=== PATIENT | female | born 1985 | race Caucasian/White ===

== ENCOUNTER 2016-11-30 21:58 | Emergency (ER) | payer OTHER ==
[~2016-11-30] VITALS: Ht 162.6 cm; Wt 57.8 kg
[2016-11-30 22:12] VITALS: TEMP 36.8; Ht 162.6 cm; Wt 57.8 kg
[2016-11-30 23:10] LABS: URINE APPEARANCE CLEAR (CLEAR); URINE BILIRUBIN NEG (NEG); URINE COLOR DK YELLOW; URINE NITRITE NEG (NEG); URINE SPECIFIC GRAVITY 1.024 (1.000-1.030); UROBILINOGEN POS (NEG); ZZUR CULT IF INDIC CLEAN CATCH NO
[2016-11-30 23:11] LABS: MANUAL MICROSCOPIC REQUIRED? NO; REVIEW REQ? NO
[2016-11-30 23:27] LABS: HEMATOCRIT 40.8 % (37-47); MEAN CELL VOLUME 87.4 fL (80-100); MEAN CORPUSCULAR HEMOGLOBIN 30.4 pg (25-34); MEAN CORPUSCULAR HGB CONC 34.8 g/dl (32-36); MEAN PLATELET VOLUME 9.7 fL (7.4-10.4); PLATELET COUNT 253 K/uL (130-400); RED BLOOD COUNT 4.67 M/uL (4.2-5.4)
[2016-11-30 23:51] LABS: BUN/CREATININE RATIO 15.4 (10-20); CALCIUM 9.4 mg/dl (8.5-10.1); CREATININE 0.71 mg/dl (0.60-1.20); POTASSIUM 3.3 mmol/L (3.5-5.1)
[2016-11-30 23:53] LABS: ALB/GLOB RATIO 1.3 (0.9-2)
--- NOTE | 2016-11-30 23:55 | EMERGENCY ROOM VISIT NOTE ---
History Report prepared by Rajendra: Kelle Perez Under the Supervision of: Dr. Viky Aguilera D.O. First contact with patient: 23:07 Chief Complaint: ABDOMINAL PAIN Stated Complaint: STOMACH PAIN, THROWING UP GREEN, CANT EAT Nursing Triage Summary: Has been having abdominal pains and nausea intermittently on 11/14/16. Has been seen at [facility] over the weekend and was told it was gallbladder related and would need a surgical consult. Pain is left abdomen with radiation to mid-back. States emesis is green colored. History of Present Illness The patient is a 31 year old female who presents to the Emergency Room with complaints of intermittent abdominal pain that began two weeks ago. She currently rates her discomfort as a 5/10 in severity. The patient states that for the past two weeks she has had difficulty eating. She states that each time she eats, she becomes nauseous, develops abdominal pain, and then vomits. The patient denies any diarrhea or constipation. She denies any history of GI problems. The patient states that she was evaluated at [facility]'s Emergency Department and had a CT scan that revealed her symptoms were from her gallbladder. She states that she was instructed to see her primary care physician to set up a surgery consult. The patient states that she saw her PCP today and had additional blood work. She states that she was set up with a surgery consult for December 04, but states that her PCP cancelled the appointment. The patient states that she was instructed to come to [facility]'s Emergency department if she developed more nausea, vomiting, and abdominal pain. She reports a family history of gallbladder disease. The patient reports a surgical history of a hysterectomy. She denies any other active medical problems. Source of History: patient Onset: two weeks ago Position: abdomen Symptom Intensity: 5/10 Timing: intermittent Modifying Factors (Worsening): eating Associated Symptoms: + nausea, + vomiting, No diarrhea Review of Systems See HPI for pertinent positives & negatives. A total of 10 systems reviewed and were otherwise negative. Past Medical & Surgical Surgical Problems: (1) H/O: hysterectomy Family History Gallbladder disease Social History Smoking Status: Current Every Day Smoker Alcohol Use: none Occupation Status: employed Current/Historical Medications No Active Prescriptions or Reported Meds Allergies Coded Allergies: No Known Allergies (Unverified , 11/30/16) Physical Exam Vital Signs Date Time Temp Pulse Resp B/P (MAP) Pulse Ox O2 Delivery O2 Flow Rate FiO2 12/01/16 04:35 76 100 12/01/16 04:31 110/84 12/01/16 04:20 78 100 12/01/16 04:05 91 100 12/01/16 04:00 133/83 12/01/16 03:50 84 99 12/01/16 03:35 72 100 12/01/16 03:30 122/83 12/01/16 03:29 81 100 12/01/16 03:14 74 100 12/01/16 03:01 114/86 12/01/16 02:59 65 99 12/01/16 02:54 68 99 12/01/16 02:39 67 100 12/01/16 02:30 124/84 12/01/16 02:24 65 100 12/01/16 02:09 67 100 12/01/16 02:01 113/82 12/01/16 01:54 88 100 12/01/16 01:49 75 100 12/01/16 01:34 75 100 12/01/16 01:30 123/86 12/01/16 01:19 76 100 12/01/16 01:04 78 100 12/01/16 00:59 122/75 12/01/16 00:06 79 100 12/01/16 00:01 111/77 11/30/16 23:58 87 100 11/30/16 23:43 83 100 11/30/16 23:30 120/87 11/30/16 23:28 84 100 11/30/16 23:13 95 100 11/30/16 22:58 88 100 11/30/16 22:57 122/85 11/30/16 22:12 36.8 88 16 140/90 99 Room Air Physical Exam HEENT: Head - normocephalic and atraumatic Pupils are equal, round, and reactive to light. Extraocular eye muscles are intact, and sclera are anicteric. Nose - moist nasal mucosa without discharge. Mouth - moist buccal mucosa. Oropharynx is nonerythematous and there is no tonsillar exudate or edema noted. Neck: Supple; no JVD, nuchal rigidity, cervical lymphadenopathy. Heart: Regular rate and rhythm. There is a normal S1 and S2 with no murmurs, clicks, or gallops appreciated. Lungs: Clear to auscultation bilaterally with no wheezes, rales, or rhonchi. Abdomen: Exquisitely tender in the right upper quadrant. Soft, nondistended, with good bowel sounds. There are no palpable pulsatile masses or hepatosplenomegaly. There is no guarding, rigidity, or rebound noted. Extremities: No evidence of cyanosis, clubbing, or edema. There are easily palpable peripheral pulses. Skin: warm and dry with good turgor and no rashes. Medical Decision & Procedures ER Provider Diagnostic Interpretation: Radiology results as stated below per my review and the radiologist's interpretation: US RUQ: Visualized portions of the pancreas, aorta, and IVC are normal. The liver measures up to 16.3 cm. There is slightly hypoechoic lesion measuring 1.5 cm in the left lobe of the liver located more anteriorly. No definite vascularity is seen. The lesion can be better characterized on triple phase MRI or CT on nonemergent basis if clinically indicated. There is also a 2.7 cm oblong hyperechoic lesion in the left liver, likely focal fatty infiltration. This can also be confirmed on triple phase CT or MRI. The gallbladder is contracted with a 1.7 cm stone in the neck. There is also some sludge. Negative Barillas sign. No pericholecystic fluid. The gallbladder wall is within normal limits. The CBD measures 4.6 mm. The right kidney appears unremarkable. Radiologist: Gregory Martel MD Study ready at 0119 and initial results transmitted at 0143 Laboratory Results 11/30/16 23:10 Red Blood Count 4.67, Mean Corpuscular Volume 87.4, Mean Corpuscular Hemoglobin 30.4, Mean Corpuscular Hemoglobin Concent 34.8, Mean Platelet Volume 9.7, Neutrophils (%) (Auto) 35.9, Lymphocytes (%) (Auto) 56.0, Monocytes (%) (Auto) 5.8, Eosinophils (%) (Auto) 1.9, Basophils (%) (Auto) 0.3, Neutrophils # (Auto) 2.80, Lymphocytes # (Auto) 4.37, Monocytes # (Auto) 0.45, Eosinophils # (Auto) 0.15, Basophils # (Auto) 0.02 11/30/16 23:10 Test 11/30/16 23:00 11/30/16 23:10 Urine Color DK YELLOW Urine Appearance CLEAR (CLEAR) Urine pH 7.0 (4.5-7.5) Urine Specific [place] 1.024 (1.000-1.030) Urine Protein NEG (NEG) Urine Glucose (UA) NEG (NEG) Urine Ketones 1+ (NEG) Urine Occult Blood NEG (NEG) Urine Nitrite NEG (NEG) Urine Bilirubin NEG (NEG) Urine Urobilinogen POS (NEG) Urine Leukocyte Esterase NEG (NEG) White Blood Count 7.80 K/uL (4.8-10.8) Red Blood Count 4.67 M/uL (4.2-5.4) Hemoglobin 14.2 g/dL (12.0-16.0) Hematocrit 40.8 % (37-47) Mean Corpuscular Volume 87.4 fL (80-100) Mean Corpuscular Hemoglobin 30.4 pg (25-34) Mean Corpuscular Hemoglobin Concent 34.8 g/dl (32-36) Platelet Count 253 K/uL (130-400) Mean Platelet Volume 9.7 fL (7.4-10.4) Neutrophils (%) (Auto) 35.9 % Lymphocytes (%) (Auto) 56.0 % Monocytes (%) (Auto) 5.8 % Eosinophils (%) (Auto) 1.9 % Basophils (%) (Auto) 0.3 % Neutrophils # (Auto) 2.80 K/uL (1.4-6.5) Lymphocytes # (Auto) 4.37 K/uL (1.2-3.4) Monocytes # (Auto) 0.45 K/uL (0.11-0.59) Eosinophils # (Auto) 0.15 K/uL (0-0.5) Basophils # (Auto) 0.02 K/uL (0-0.2) RDW Standard Deviation 42.6 fL (36.4-46.3) RDW Coefficient of Variation 13.3 % (11.5-14.5) Immature Granulocyte % (Auto) 0.1 % Immature Granulocyte # (Auto) 0.01 K/uL (0.00-0.02) Anion Gap 9.0 mmol/L (3-11) Est Creatinine Clear Calc Drug Dose 98.3 ml/min Estimated GFR () 130.6 Estimated GFR (Non- 112.7 BUN/Creatinine Ratio 15.4 (10-20) Calcium Level 9.4 mg/dl (8.5-10.1) Total Bilirubin 1.1 mg/dl (0.2-1) Aspartate Amino Transf (AST/SGOT) 11 U/L (15-37) Alanine Aminotransferase (ALT/SGPT) 19 U/L (12-78) Alkaline Phosphatase 48 U/L (45-117) Total Protein 7.4 gm/dl (6.4-8.2) Albumin 4.2 gm/dl (3.4-5.0) Globulin 3.2 gm/dl (2.5-4.0) Albumin/Globulin Ratio 1.3 (0.9-2) Lipase 103 U/L (73-393) Laboratory results per my review. Medications Administered Medications (Trade) Dose Ordered Sig/Marcus Route Start Time Stop Time Status Last Admin Dose Admin Sodium Chloride 1,000 ml @ 250 mls/hr Q4H STAT IV 12/01/16 01:50 12/01/16 05:04 DC 12/01/16 01:57 250 MLS/HR Sodium Chloride 500 ml @ 999 mls/hr Q31M STAT IV 12/01/16 01:50 12/01/16 02:20 DC 12/01/16 01:57 999 MLS/HR Ondansetron HCl (Zofran Inj) 4 mg NOW STAT IV 12/01/16 02:02 12/01/16 02:03 DC 12/01/16 02:29 4 MG Procedure The patient was treated with Sodium Chloride 500 ml @ 999 mls/hr IV, Sodium Chloride 1000 ml @ 250 mls/hr IV, Zofran Inj 4 mg IV. ED Course 2343: Past medical records reviewed. The patient was evaluated in room B9. A complete history and physical exam was performed. 2355: I reviewed the patient's office visit notes today. I reviewed the patient's CBC and chemistry panel and everything was normal. 2358: I reevaluated the patient and discussed the treatment plan. 0005: I reviewed the patient's CT scan from [place] emergency department that showed choledocholithiasis with obstructing stone without evidence of gallbladder wall thickening etc. 0150: Ordered Sodium Chloride 500 ml @ 999 mls/hr IV, Sodium Chloride 1000 ml @ 250 mls/hr IV. 0150: I reevaluated the patient and she is still uncomfortable. I discussed the exam findings with her and I discussed the treatment plan. General Surgery will be consulted. 0158: I discussed the patients case with Dr. Pascal, General Surgery. She states that we should give the patient something to eat. She states that if the patient can eat, she will talk to the patient tomorrow about scheduling a cholecystectomy electively. 0202: Ordered Zofran Inj 4 mg IV. 0216: I reevaluated the patient and I updated her on the treatment plan. She is in agreement. 0354: I reevaluated the patient and she is experiencing moderate epigastric pain after eating a turkey sandwich. 0417: I reevaluated the patient and she is resting comfortably. I discussed the exam findings with her and I discussed the treatment plan. She verbalized complete understanding and agreement. She is ready to go home. Medical Decision The patient is a 31 year old female who presents to the ED with abdominal pain. Differential diagnosis includes gastritis, pancreatitis, cholecystitis, hepatitis. Lab interpretation: no leukocytosis, normal H&H, potassium 3.3, normal renal function and glucose, total bilirubin 1.1, Alk-phos was normal, lipase 103, urine 1 plus ketones, positive urobilinogen. The patient's bilirubin is up from earlier today as it was 0.9. I attest that I have personally reviewed the patient's current medication list. Patient was found to have normal blood pressure on screening and does not require follow-up. This is a 31-year-old female patient with right upper quadrant abdominal pain. On CT scan and ultrasound, there is evidence of choledocholithiasis. However, at this time, the patient is comfortable. She received IV fluids. She was able to drink and eat without vomiting. The patient has Zofran to use at home. She will be contacted later today by Dr. Pascal's office to arrange for outpatient elective surgery. Consults Time Called: 155 Consulting Physician: Dr. Pascal, General Surgery Returned Call: 015 I discussed the patients case with Dr. Pascal, General Surgery. She states that give the patient something to eat. She states that if the patient can eat she will talk to the patient tomorrow about scheduling a cholecystectomy electively. Impression Primary Impression: Choledocholithiasis Scribe Attestation The scribe's documentation has been prepared under my direction and personally reviewed by me in its entirety. I confirm that the note above accurately reflects all work, treatment, procedures, and medical decision making performed by me. Departure Information Dispostion Home / Self-Care Prescriptions No Active Prescriptions or Reported Meds Referrals No Doctor, Assigned (PCP) Forms Call Back Authorization, HOME CARE DOCUMENTATION FORM, IMPORTANT VISIT INFORMATION Patient Instructions Gallbladder Surg, Gallstones, My [facility] Additional Instructions Rest Take a very bland low fat diet Return to the ER if symptoms worsen.
[2016-12-01 00:40] LABS: BASO % 0.3 %; BASO ABS # 0.02 K/uL (0-0.2); COMPLETE YES; EOS % 1.9 %; IG% 0.1 %; LYMPH ABS # 4.37 K/uL (1.2-3.4); MONO % 5.8 %; NEUT % 35.9 %
[2016-12-01] MEDS ORDERED: SODIUM CHLORIDE 0.9% 500ML 500 ML IV STA (01:50)
[2016-12-01] MEDS ORDERED: SODIUM CHLORIDE 0.9% 1000ML 1,000 ML IV STA (01:50)
[2016-12-01] MEDS ORDERED: ONDANSETRON INJ 2 MG/ML 2 ML VIAL IV STA (02:02)
[2016-12-01 04:31] VITALS: BP 110/84
[2016-12-01 04:35] VITALS: PULSE 76; O2SAT 100
--- NOTE | 2016-12-01 06:52 | DIAGNOSTIC IMAGING REPORT ---
GALLBLADDER-ABD LIMITED CLINICAL HISTORY: eval for cho michele pain. Nausea. TECHNIQUE: Ultrasound COMPARISON STUDY: None FINDINGS: Moderately contracted gallbladder. 1.5 cm gallstone with a small amount of sludge. Common bile duct 5 mm. Liver demonstrates fatty infiltration. Several foci of increased echogenicity suggesting probable hemangiomas. Lobulation anterior margin of the liver versus 1.5 cm hypoechoic nodule. Poor visualization of the pancreatic tail. Pancreas body is unremarkable. IMPRESSION: 1. Fatty infiltration of liver. 2. Several benign hepatic hemangiomas. 3. Indeterminate 1.5 cm hypoechoic nodule versus lobulation of the anterior left hepatic lobe. Multiphase CT evaluation is recommended as initial evaluation. 4. Contracted gallbladder containing a 1.5 cm gallstone as well as a small amount of sludge. The above report was generated using voice recognition software. It may contain grammatical, syntax or spelling errors. Electronically signed by: Sriram Glaser M.D. 12/01/2016 6:51 AM Dictated Date/Time: 12/01/2016 6:47 AM
[2016-12-01] MEDS ORDERED: HYDR-5688 PO (20:46)
== END 2016-12-01 04:48 | disposition home or self-care (01) ==
LOC: C.EDB 22:01
DX: K80.50 Calculus of bile duct without cholangitis or cholecystitis without obstruction (principal); R11.2 Nausea with vomiting, unspecified; Z87.19 Personal history of other diseases of the digestive system; Z90.710 Acquired absence of both cervix and uterus; Z83.79 Family history of other diseases of the digestive system; F17.200 Nicotine dependence, unspecified, uncomplicated

== ENCOUNTER 2016-12-01 17:17 | Observation (INO) | payer OTHER ==
[~2016-12-01] VITALS: Ht 162.6 cm; Wt 57.2 kg
[2016-12-01] MEDS ORDERED: SODIUM CHLORIDE 0.9% 1000ML 1,000 ML IV STA (17:54)
[2016-12-01] MEDS ORDERED: ONDANSETRON 8 MG/54 ML D5W IV STA ×2 (17:54→19:31)
[2016-12-01] MEDS ORDERED: MoRPHine SULFATE 4 MG/ML 1 ML CARP\\VIAL IV STA ×2 (17:54→19:31)
--- NOTE | 2016-12-01 17:56 | EMERGENCY ROOM VISIT NOTE ---
History Report prepared by Rajendra: Kate Rubin Under the Supervision of: Dr. Luz Johnson D.O. First contact with patient: 17:39 Chief Complaint: GI ASSESSMENT Stated Complaint: GALLBLADDER STONES Nursing Triage Summary: pt dx with gallbladder disease last night in ER and spoke with surgeon pt returns to Er today for increased pain inability to eat n/v History of Present Illness The patient is a 31 year old female who presents to the Emergency Room with complaints of worsening intermittent abdominal pain and vomiting that started last night. The patient was evaluated in the ED last night where she was diagnosed with gallstones. She was discharged and told to come back if her symptoms got worse. The patient ate toast this morning and has vomited 3 times since then. She adds that she has experienced 2 episodes of diarrhea today as well. The patient has an extensive family history of gallbladder disease. She denies fevers, chest pain, shortness of breath, or any additional associated symptoms. Source of History: patient Onset: Last night Position: abdomen, other (GI system ) Timing: intermittent, worsening Modifying Factors (Relieving): other (None) Associated Symptoms: + vomiting, + diarrhea, No fevers, No chest pain, No SOB Review of Systems See HPI for pertinent positives & negatives. A total of 10 systems reviewed and were otherwise negative. Past Medical & Surgical Medical Problems: (1) Abdominal pain (2) Biliary colic (3) Cholelithiases (4) Vomiting Surgical Problems: (1) H/O: hysterectomy Family History Gallbladder disease Social History Smoking Status: Current Every Day Smoker Alcohol Use: none Drug Use: none Occupation Status: employed Current/Historical Medications Scheduled PRN Hydrocodone/Acetaminophen 5MG/325MG ([place] 5MG/325MG), 1-2 TABLET PO Q4H PRN for Pain Allergies Coded Allergies: BEE STING (Verified Allergy, Severe, ANAPHYLAXIS, 12/01/16) Physical Exam Vital Signs Date Time Temp Pulse Resp B/P (MAP) Pulse Ox O2 Delivery O2 Flow Rate FiO2 12/01/16 22:20 70 15 98/67 99 12/01/16 21:05 71 14 109/63 99 Room Air 12/01/16 18:54 81 15 110/74 100 Room Air 12/01/16 17:26 36.7 100 20 116/68 98 Room Air Physical Exam GENERAL: alert, uncomfortable appearing, no distress, non-toxic EYE EXAM: normal conjunctiva, PERRL and EOM's grossly intact OROPHARYNX: no exudate, no erythema, lips, buccal mucosa, and tongue normal and mucous membranes are dry. NECK: supple, no nuchal rigidity, no adenopathy, non-tender LUNGS: Clear to auscultation. Normal chest wall mechanics HEART: no murmurs, S1 normal and S2 normal ABDOMEN: Upper abdominal pain to epigastric bilateral costal margins, no rebound or guarding, no masses, no organomegaly. BACK: Back is symmetrical on inspection and there is no deformity, no midline tenderness, no CVA tenderness. SKIN: no rashes and no bruising UPPER EXTREMITIES: upper extremities are grossly normal. LOWER EXTREMITIES: No pitting edema. NEURO EXAM: Normal sensorium, cranial nerves II-XII grossly intact, normal speech, no gross weakness of arms, no gross weakness of legs. Medical Decision & Procedures Laboratory Results 12/01/16 18:30 Test 12/01/16 18:30 Anion Gap 6.0 mmol/L (3-11) Est Creatinine Clear Calc Drug Dose 99.7 ml/min Estimated GFR () 132.9 Estimated GFR (Non- 114.6 BUN/Creatinine Ratio 13.1 (10-20) Lactic Acid Level 0.7 mmol/L (0.4-2.0) Calcium Level 9.2 mg/dl (8.5-10.1) Lipase 116 U/L (73-393) Laboratory results per my review. Medications Administered Medications (Trade) Dose Ordered Sig/Marcus Route Start Time Stop Time Status Last Admin Dose Admin Sodium Chloride 1,000 ml @ 999 mls/hr Q1H1M STAT IV 12/01/16 17:54 12/01/16 18:54 DC 12/01/16 18:36 999 MLS/HR Morphine Sulfate (MoRPHine SULFATE INJ) 4 mg NOW STAT IV 12/01/16 17:54 12/01/16 17:55 DC 12/01/16 18:53 4 MG Ondansetron HCl (Zofran 8mg Iv) 8 mg NOW STAT IV 12/01/16 17:54 12/01/16 17:55 DC 12/01/16 18:53 8 MG Morphine Sulfate (MoRPHine SULFATE INJ) 4 mg NOW STAT IV 12/01/16 19:31 12/01/16 19:32 DC 12/01/16 21:01 4 MG Ondansetron HCl (Zofran 8mg Iv) 8 mg NOW STAT IV 12/01/16 19:31 12/01/16 19:32 DC 12/01/16 21:02 8 MG Bupivacaine HCl/ Epinephrine Bitart (Sensorcaine/ Epinephrine 0.5% Mpf 1:200,000) 10 ml STK-MED ONCE .ROUTE 12/01/16 21:42 12/01/16 21:43 DC 12/01/16 21:42 10 ML Lactated Ringer's 1,000 ml @ 150 mls/hr Q6H40M IV 12/01/16 23:25 12/02/16 10:40 DC 12/02/16 06:30 150 MLS/HR ED Course 1749: The patient was evaluated in room B5. A complete history and physical exam was performed. 1753: Ordered Zofran 8 mg IV, Morphine Sulfate 4 mg IV, Sodium Chloride 1,000 ml @ 999 mls/hr IV. 1930: I reviewed the patient's case with Dr. Puentes (Surgery). He will evaluate the patient for further management. 1930: Ordered Zofran 8 mg IV, Morphine Sulfate 4 mg IV. Medical Decision Differential diagnosis: Etiologies such as appendicitis, diverticulitis, PUD, biliary pathology, UTI, pancreatitis, obstruction, mesenteric ischemia, aortic pathology, infections, inflammatory bowel disease, renal colic, as well as others were entertained. Patient seen here last 24 hours after being sent from the outside facility where she had a CAT scan suggestive of cholelithiasis and possible choledocholithiasis. Ultrasound here showed single large gallstone as well as sludge. Patient symptoms able to be controlled and physician at that time discussed with surgery who felt patient to be scheduled for elective cholecystectomy as an outpatient. Patient given strict precautions of symptoms to return for, and after going home and attempting to eat a bland diet, develop recurrent abdominal pain and vomiting. Patient returns to the emergency room now. Patient with no fever, no leukocytosis, no abnormal LFTs, however sepsis with rounds of pain and nausea medication filled result patient symptoms. Discussed case with general surgery given likely need for admission and operative treatment for biliary colic and cholelithiasis. Did not feel required repeat imaging at this time. Vital signs otherwise stable, no evidence of ascending cholangitis, pancreatitis, bacteremia/sepsis. Patient is otherwise well-appearing, agreeable with plan. Medication Reconcilliation Current Medication List: was personally reviewed by me Consults Time Called: 1928 Consulting Physician: Dr. Puentes (Surgery) Returned Call: 1930 I reviewed the patient's case with Dr. Puentes (Surgery). He will evaluate the patient for further management. Impression Primary Impression: Abdominal pain Additional Impressions: Vomiting Biliary colic Cholelithiases Scribe Attestation The scribe's documentation has been prepared under my direction and personally reviewed by me in its entirety. I confirm that the note above accurately reflects all work, treatment, procedures, and medical decision making performed by me. Departure Information Dispostion Being Evaluated By Surgeon Prescriptions Hydrocodone/Acetaminophen 5MG/325MG ([place] 5MG/325MG) Tab 1-2 TABLET PO Q4H Y for Pain, #40 TAB Prov: Christo Puentes D.O. 12/01/16 Referrals Casimiro Jones M.D. (PCP) Patient Instructions My [facility] Problem Qualifiers Primary Impression: Abdominal pain Abdominal location: upper abdomen, unspecified Qualified Codes: R10.10 - Upper abdominal pain, unspecified Additional Impressions: Vomiting Vomiting type: unspecified Vomiting Intractability: non-intractable Nausea presence: with nausea Qualified Codes: R11.2 - Nausea with vomiting, unspecified Cholelithiases Cholelithiasis location: gallbladder Cholecystitis presence: without cholecystitis Biliary obstruction: without biliary obstruction Qualified Codes: K80.20 - Calculus of gallbladder without cholecystitis without obstruction
[2016-12-01 19:16] LABS: BUN/CREATININE RATIO 13.1 (10-20); CALCIUM 9.2 mg/dl (8.5-10.1); CREATININE 0.7 mg/dl (0.60-1.20); POTASSIUM 3.7 mmol/L (3.5-5.1)
[2016-12-01 19:23] LABS: HEMATOCRIT 40.9 % (37-47); MEAN CELL VOLUME 89.1 fL (80-100); MEAN CORPUSCULAR HEMOGLOBIN 30.5 pg (25-34); MEAN CORPUSCULAR HGB CONC 34.2 g/dl (32-36); MEAN PLATELET VOLUME 10.3 fL (7.4-10.4); PLATELET COUNT 238 K/uL (130-400); RED BLOOD COUNT 4.59 M/uL (4.2-5.4)
[2016-12-01 19:54] LABS: BASO % 0.8 %; BASO ABS # 0.06 K/uL (0-0.2); COMPLETE YES; EOS % 3.2 %; IG% 0.1 %; LYMPH % 55.7 %; LYMPH ABS # 4.23 K/uL (1.2-3.4); MONO % 5.4 %; NEUT % 34.8 %
--- NOTE | 2016-12-01 20:27 | History and Physical ---
History & Physical Date Dec 01, 2016. Chief Complaint abdominal pain, N/V and weightloss since November 14. History of Present Illness The patient is a 31 year old female with complaints of RUQ/epigastric pain with radiation into her back at times with nausea /emesis to the point where she is having food aversion and states she has lost approx 20 lbs. has been to several ER's. has had a ct scan and US both showing gallstones.. Past Medical/Surgical History Medical Problems: (1) Abdominal pain (2) Biliary colic (3) Cholelithiases (4) Vomiting Surgical Problems: (1) H/O: hysterectomy Additional History Hepatic Disease: No Endocrine Disorder: No Kidney Disease: No Hypertension: No Heart Disease: No Bleeding Tendencies: No Infectious Diseases: No Allergies Coded Allergies: No Known Allergies (Unverified , 11/30/16) Home Medications No Active Prescriptions or Reported Meds Physical Examination Skin: warm/dry Eyes: normal inspection, EOMI ENT: normal ENT inspection Head: normocephalic, atraumatic Neck: supple, trachea midline Respiratory/Chest: normal breath sounds, no respiratory distress Cardiovascular: regular rate, rhythm Abdomen / GI: + pertinent finding (+RUQ ttp. ) Extremities: normal inspection Diagnosis symptomatic gallstones. discussed options/risks ( bleeding/infection/blood clots/injury to other organs such as bile ducts or bowel, etc...). b/c she has bounced back several times to ER's, we will go ahead and proceed with sujatha donahue. questions answered.
[2016-12-01] MEDS ORDERED: HYDR-5688 PO (20:46)
[2016-12-01] MEDS ORDERED: BUPIVACAINE/EPINEPHRINE 0.5% MPF 1:200,000 10 ML VIAL ONE (21:42)
--- NOTE | 2016-12-01 22:12 | Discharge Instructions ---
Discharge Instructions Date of Service Dec 01, 2016. Admission Reason for Admission: Gallbladder Stones Discharge Discharge Diagnosis / Problem: symptomatic cholelithiasis Discharge Goals Goal(s): Decrease discomfort, Improve nutritional status, Prevent Disease Progression Activity Recommendations Activity Limitations: as noted below Lifting Limitations: no more than 10 pounds Exercise/Sports Limitations: until after follow-up appointment May Resume Sexual Activity: after follow-up appointment Shower/Bathe: no limitations . Instructions / Follow-Up Instructions / Follow-Up call [phone] to schedule a follow up appointment with Dr. Puentes or if you have any problems/questions. Current Hospital Diet Patient's current hospital diet: Discharge Diet Recommended Diet: Regular Diet Procedures Procedures Performed: lap izabella Pending Studies Studies pending at discharge: yes List of pending studies: path report Medical Emergencies . Who to Call and When: Medical Emergencies: If at any time you feel your situation is an emergency, please call 911 immediately. . Non-Emergent Contact Non-Emergency issues call your: Primary Care Provider, Surgeon Call Non-Emergent contact if: temperature is above 101, wound has increased drainage, wound has increased redness, wound has increased pain . "Provider Documentation" section prepared by Christo Puentes. . VTE Core Measure Inpt VTE Proph given/why not?: SCD's
[2016-12-01] MEDS ORDERED: NALOXONE HCL 0.4 MG/1 ML VIAL/CARP IV PRN (22:15)
[2016-12-01] MEDS ORDERED: HYDROmorphone INJ 2 MG/ML SYR/VIAL IV PRN (22:15)
[2016-12-01] MEDS ORDERED: PHENYLEPHRINE 100MCG/ML 5ML SYR IV PRN (22:15)
[2016-12-01] MEDS ORDERED: FLUMAZENIL 0.1 MG/1 ML 10 ML VIAL IV PRN (22:15)
[2016-12-01] MEDS ORDERED: LABETALOL HCL IV 5 MG/ML 20ML IV PRN (22:15)
[2016-12-01] MEDS ORDERED: FENTANYL CITRATE INJ 50 MCG/1 ML 2 ML VIAL IV PRN (22:15)
[2016-12-01] MEDS ORDERED: EpHEDrine SULFATE INJ 50 MG/ML AMP IV PRN (22:15)
[2016-12-01] MEDS ORDERED: MEPERIDINE HCL 25 MG/ML CARP IV PRN (22:15)
[2016-12-01] MEDS ORDERED: ATROPINE SULFATE 0.1 MG/ML 5ML SYR IV PRN (22:15)
[2016-12-01] MEDS ORDERED: ONDANSETRON INJ 2 MG/ML 2 ML VIAL IV PRN ×2 (22:15→23:30)
[2016-12-01] MEDS ORDERED: FENTANYL CITRATE INJ 50 MCG/1 ML 2 ML VIAL ONE ×3 (22:16→23:45)
[2016-12-01] MEDS ORDERED: MIDAZOLAM HCL 1 MG/ML 2ML VIAL ONE (22:16)
[2016-12-01] MEDS ORDERED: GLYCOPYRROLATE INJ 0.2 MG/ML VIAL ONE (22:42)
[2016-12-01] MEDS ORDERED: LIDOCAINE HCL 2% 2 ML VIAL (20MG/ML) ONE (22:42)
[2016-12-01] MEDS ORDERED: PROPOFOL IV EMULSION 10 MG/ML 20 ML VIAL IV ONE (22:42)
[2016-12-01] MEDS ORDERED: DEXAMETHASONE SOD INJ 4 MG/ML VIAL ONE (22:42)
[2016-12-01] MEDS ORDERED: NEOSTIGMINE METHYLSULFATE 5 MG/5 ML SYR ONE (22:42)
[2016-12-01] MEDS ORDERED: CEFAZOLIN SOD 1 GM VIAL ONE (22:43)
[2016-12-01] MEDS ORDERED: ONDANSETRON INJ 2 MG/ML 2 ML VIAL ONE (22:43)
[2016-12-01] MEDS ORDERED: ROCURONIUM BROMIDE 10 MG/ML 5 ML VIAL ONE (22:43)
[2016-12-01] MEDS ORDERED: MoRPHine SULFATE 4 MG/ML 1 ML CARP\\VIAL IV PRN (23:30)
[2016-12-01] MEDS ORDERED: HYDROCODONE/ACETAMOPHEN 5/325MG TAB PO PRN (23:30)
[2016-12-01] MEDS ORDERED: IBUPROFEN 600 MG TAB PO PRN (23:30)
--- NOTE | 2016-12-01 23:34 | [facility] Operative Report ---
Operative Report Operative Date Dec 01, 2016. Pre-Operative Diagnosis symptomatic gallstones Post-Operative Diagnosis symptomatic gallstones Procedure(s) Performed lap izabella Surgeon Dr. Puentes Cloth Picker Surgeon(s) none Estimated Blood Loss 5 ml Findings gallstones; left liver lesion c/w hemangioma Specimens a. gallbladder and contents Anesthesia get Complication(s) None Disposition Recovery Room / PACU Description of Procedure After informed consent was obtained the patient was taken to the operating suite placed in supine position. After successful intubation the abdomen was sterilely prepped and draped in usual fashion. A supraumbilical incision was made with an 11 blade scalpel and carried down through the soft tissue using electrocautery. The anterior rectus fascia was opened using electrocautery and 2 #0 Vicryl stay sutures were placed. Peritoneum was entered using blunt finger penetration and a finger sweep was performed. A 12 mm Puente trocar was placed in the abdomen was insufflated to 18 mmHg. The laparoscope was inserted in the abdomen was examined 360. A subxiphoid 5 mm port and 2 right upper quadrant 5 mm ports were placed under direct vision. The patient was placed in a reverse Trendelenburg position and slightly airplaned to the left. The gallbladder was identified. It was not acutely inflamed. We elevated it superiorly and laterally. A [place] dissector was used to take down adhesions around the neck of the gallbladder. I identified the cystic duct and skeletonized it. I could see its junction with the common bile duct. 2 clips were placed proximally and one clip distally and it was transected. In similar fashion the cystic artery was skeletonized clipped and divided as well. There was also a posterior branch which I clipped and divided. The gallbladder was then removed from the gallbladder fossa using electrocautery. It was removed intact and placed into an Endo Catch bag. Several small bleeding points on the gallbladder fossa were controlled using electrocautery. Thorough irrigation was performed of the right upper quadrant. There was adequate hemostasis and no evidence of a bile leak at the end the procedure. We did look around the abdomen. There was a lesion on the left lobe of the liver consistent with a hemangioma. Because of this appearance I opted not to biopsy it. I elevated the left lobe of the liver and stomach appeared normal. The peritoneal surfaces appeared normal as well. I did attempt to look in the pelvis was somewhat difficult because of our trocar placement. I did not see anything obviously abnormal. The gallbladder was removed from the camera port site all the trochars were removed and the abdomen was desufflated. The fascia of the camera port was closed using 0 Vicryl in a [id number] fashion. All wounds were irrigated and closed using 4-0 Monocryl. Marcaine was injected around for postoperative analgesia and skin glue used as a dressing. The patient was awakened extubated and transferred recovery in stable condition I attest to the content of the Intraoperative Record and any orders documented therein. Any exceptions are noted below.
[2016-12-01] MEDS ORDERED: KETOROLAC TROMETHAMINE 30 MG/ML VIAL ONE (23:37)
--- NOTE | 2016-12-01 23:57 | Anesthesiology Progress Note ---
Anesthesia Post Op Note Date & Time Dec 01, 2016 at 23:57 Vital Signs Pain Intensity: 3 Vital Signs Past 12 Hours Date Time Temp Pulse Resp B/P (MAP) Pulse Ox O2 Delivery O2 Flow Rate FiO2 12/01/16 23:50 71 20 109/63 98 Oxymask 5 12/01/16 23:43 36.0 67 20 127/78 98 Oxymask 10 12/01/16 22:20 70 15 98/67 99 12/01/16 21:05 71 14 109/63 99 Room Air 12/01/16 18:54 81 15 110/74 100 Room Air 12/01/16 17:26 36.7 100 20 116/68 98 Room Air Notes Mental Status: alert / awake / arousable, participated in evaluation Pt Amnestic to Procedure: Yes Nausea / Vomiting: adequately controlled Pain: adequately controlled Airway Patency, RR, SpO2: stable & adequate BP & HR: stable & adequate Hydration State: stable & adequate Anesthetic Complications: no major complications apparent
[2016-12-02] VITALS (10 sets, daily range): BP systolic 91–105; BP diastolic 50–69; PULSE 54–80; TEMP 36.4–36.5; O2SAT 95–99; Ht 162.6 cm; Wt 57.2 kg
[2016-12-02] MEDS ORDERED: NURSING VERBAL MED ORDER ONE
[2016-12-02] MEDS ORDERED: HYDROmorphone INJ 2 MG/ML SYR/VIAL ONE (00:01)
[2016-12-02] MEDS ORDERED: IV FLUIDS COMPLETED PRN (00:15)
[2016-12-02] MEDS: LACTATED RINGER'S 1000ML 1,000 ML IV SCH ×2 (00:44→06:30)
[2016-12-02] MEDS: MoRPHine SULFATE 2 MG/ML CARP IV PRN ×2 (00:45→01:40)
[2016-12-02] MEDS: HYDROCODONE/ACETAMOPHEN 5/325MG TAB PO PRN ×2 (03:57→07:58)
[2016-12-02 07:03] LABS: BASO % 0.2 %; BASO ABS # 0.01 K/uL (0-0.2); COMPLETE YES; EOS % 0.4 %; IG% 0.2 %; LYMPH % 18.7 %; LYMPH ABS # 1.02 K/uL (1.2-3.4); MEAN CELL VOLUME 90.9 fL (80-100); MEAN CORPUSCULAR HEMOGLOBIN 29.6 pg (25-34); MEAN CORPUSCULAR HGB CONC 32.6 g/dl (32-36); MEAN PLATELET VOLUME 10.2 fL (7.4-10.4); MONO % 2.2 %; NEUT % 78.3 %; PLATELET COUNT 210 K/uL (130-400); RED BLOOD COUNT 4.29 M/uL (4.2-5.4); WHITE BLOOD COUNT 5.45 K/uL (4.8-10.8)
--- NOTE | 2016-12-02 09:11 | Surgery Progress Note ---
Surgery Progress Note Date of Service Dec 02, 2016. Subjective Post OP Day: 1 + feeling well hungry for the first time in awhile which she is happy about. Objective Vital Signs: Date Time Temp Pulse Resp B/P (MAP) Pulse Ox O2 Delivery O2 Flow Rate FiO2 12/02/16 07:55 36.4 67 16 103/66 (78) 99 Room Air 12/02/16 04:00 36.5 70 16 104/65 (78) 99 Room Air 12/02/16 03:27 36.4 54 16 91/50 (64) 98 Room Air 12/02/16 02:31 36.4 80 16 101/63 (76) 98 Room Air 12/02/16 01:30 36.5 71 16 97/59 (72) 97 Room Air 12/02/16 01:11 96 Room Air 12/02/16 01:03 36.5 71 16 97/60 96 Room Air 12/02/16 01:01 36.5 71 16 97/60 (72) 97 Room Air 12/02/16 00:41 36.5 54 16 105/69 (81) 95 Room Air 12/02/16 00:20 36.3 74 18 133/75 98 Room Air 12/02/16 00:10 72 18 122/55 98 Room Air 12/02/16 00:00 90 20 127/83 98 Oxymask 3 12/01/16 23:50 71 20 109/63 98 Oxymask 5 12/01/16 23:43 36.0 67 20 127/78 98 Oxymask 10 12/01/16 22:20 70 15 98/67 99 12/01/16 21:05 71 14 109/63 99 Room Air 12/01/16 18:54 81 15 110/74 100 Room Air 12/01/16 17:26 36.7 100 20 116/68 98 Room Air General Appearance: no apparent distress Abdomen: non distended, soft Incision(s): clean, dry, intact Laboratory Results: Results Past 24 Hours Test 12/01/16 18:30 12/02/16 06:21 Range/Units White Blood Count 7.60 5.45 4.8-10.8 K/uL Red Blood Count 4.59 4.29 4.2-5.4 M/uL Hemoglobin 14.0 12.7 12.0-16.0 g/dL Hematocrit 40.9 39.0 37-47 % Mean Corpuscular Volume 89.1 90.9 80-100 fL Mean Corpuscular Hemoglobin 30.5 29.6 25-34 pg Mean Corpuscular Hemoglobin Concent 34.2 32.6 32-36 g/dl Platelet Count 238 210 130-400 K/uL Mean Platelet Volume 10.3 10.2 7.4-10.4 fL Neutrophils (%) (Auto) 34.8 78.3 % Lymphocytes (%) (Auto) 55.7 18.7 % Monocytes (%) (Auto) 5.4 2.2 % Eosinophils (%) (Auto) 3.2 0.4 % Basophils (%) (Auto) 0.8 0.2 % Neutrophils # (Auto) 2.65 4.27 1.4-6.5 K/uL Lymphocytes # (Auto) 4.23 1.02 1.2-3.4 K/uL Monocytes # (Auto) 0.41 0.12 0.11-0.59 K/uL Eosinophils # (Auto) 0.24 0.02 0-0.5 K/uL Basophils # (Auto) 0.06 0.01 0-0.2 K/uL RDW Standard Deviation 43.9 44.6 36.4-46.3 fL RDW Coefficient of Variation 13.4 13.4 11.5-14.5 % Immature Granulocyte % (Auto) 0.1 0.2 % Immature Granulocyte # (Auto) 0.01 0.01 0.00-0.02 K/uL Sodium Level 141 136-145 mmol/L Potassium Level 3.7 3.5-5.1 mmol/L Chloride Level 110 98-107 mmol/L Carbon Dioxide Level 25 21-32 mmol/L Anion Gap 6.0 3-11 mmol/L Blood Urea Nitrogen 9 7-18 mg/dl Creatinine 0.70 0.60-1.20 mg/dl Est Creatinine Clear Calc Drug Dose 99.7 ml/min Estimated GFR () 132.9 Estimated GFR (Non- 114.6 BUN/Creatinine Ratio 13.1 10-20 Random Glucose 79 70-99 mg/dl Lactic Acid Level 0.7 0.4-2.0 mmol/L Calcium Level 9.2 8.5-10.1 mg/dl Total Bilirubin 1.1 0.6 0.2-1 mg/dl Direct Bilirubin 0.3 0.2 0-0.2 mg/dl Aspartate Amino Transf (AST/SGOT) 8 39 15-37 U/L Alanine Aminotransferase (ALT/SGPT) 17 28 12-78 U/L Alkaline Phosphatase 43 39 45-117 U/L Total Protein 6.8 5.7 6.4-8.2 gm/dl Albumin 3.8 3.1 3.4-5.0 gm/dl Lipase 116 73-393 U/L Assessment & Plan doing well. ok for d/c after breakfast instructions given.
--- NOTE | 2016-12-06 11:28 | Discharge Summary ---
Discharge Summary Date of Service Dec 06, 2016. Admission Date/Reason Dec 01, 2016 at 23:28 Abdominal Pain, Cholelithiasis. Discharge Date/Disposition Dec 02, 2016 Home Diagnosis Principal Diagnosis: Cholelithiasis, chronic cholecystitis Procedure(s) Performed Laparoscopic cholecystectomy Medication Reconciliation New Medications: Hydrocodone/Acetaminophen 5MG/325MG ([place] 5MG/325MG) Tab 1-2 TABLET PO Q4H PRN for Pain, #40 TAB Admission Physical Exam As per Admitting History & Physical. Hospital Course 31 y/o female presented to ED for the second time in two days c/o abdominal pain and vomiting. Ultrasound had shown contracted gallbladder and 1.5 cm stone. She was taken to the OR that evening for laparoscopic cholecystectomy. She was transferred to the floor for overnight observation. The next day was tolerating diet and analgesics. Her abdomen was benign. She was stable for discharge. Discharge Instructions Follow-up Dr. Puentes in 2 weeks Please refer to the electronic Patient Visit Report (Discharge Instructions) for additional information.
== END 2016-12-02 10:40 | disposition home or self-care (01) ==
LOC: C.EDB 17:19 → C.MSW 23:28 → ENRESERV 12-02 00:13
PROVIDERS: ADMIT Surgery; ATTEND Surgery
DX: K80.20 Calculus of gallbladder without cholecystitis without obstruction (principal); K81.1 Chronic cholecystitis; R11.10 Vomiting, unspecified; Z90.710 Acquired absence of both cervix and uterus; F17.200 Nicotine dependence, unspecified, uncomplicated

== ENCOUNTER 2017-02-03 21:54 | Emergency (ER) | payer OTHER ==
[~2017-02-03] VITALS: Ht 162.6 cm; Wt 58.3 kg
[2017-02-03 21:54] VITALS: TEMP 36.5; O2SAT 100; Ht 162.6 cm; Wt 58.3 kg
[~2017-02-03 21:54] MED LIST: HYDR-5688 PO
[2017-02-03] MEDS ORDERED: ONDA4TAB46 PO (22:23)
[2017-02-03] MEDS ORDERED: PRLSR20 PO (22:23)
[2017-02-03] MEDS ORDERED: DICY20TA10 PO (22:23)
[2017-02-03] MEDS ORDERED: SODIUM CHLORIDE 0.9% 1000ML 1,000 ML IV STA ×2 (22:43→23:47)
[2017-02-03 23:41] LABS: BASO % 0.6 %; BASO ABS # 0.05 K/uL (0-0.2); COMPLETE YES; EOS % 3.9 %; HEMATOCRIT 38.3 % (37-47); IG% 0.3 %; LYMPH % 40.9 %; LYMPH ABS # 3.25 K/uL (1.2-3.4); MEAN CELL VOLUME 89.7 fL (80-100); MEAN CORPUSCULAR HEMOGLOBIN 30.4 pg (25-34); MEAN CORPUSCULAR HGB CONC 33.9 g/dl (32-36); MEAN PLATELET VOLUME 9.7 fL (7.4-10.4); NEUT % 49.3 %; PLATELET COUNT 241 K/uL (130-400); RED BLOOD COUNT 4.27 M/uL (4.2-5.4); WHITE BLOOD COUNT 7.95 K/uL (4.8-10.8)
[2017-02-04 00:05] LABS: BUN/CREATININE RATIO 22.3 (10-20); CREATININE 0.65 mg/dl (0.60-1.20)
[2017-02-04 00:09] LABS: URINE APPEARANCE CLEAR (CLEAR); URINE COLOR DK YELLOW; URINE NITRITE NEG (NEG); URINE PH 5.5 (4.5-7.5); URINE SPECIFIC GRAVITY 1.034 (1.000-1.030); UROBILINOGEN NEG (NEG); ZZUR CULT IF INDIC CLEAN CATCH NO
[2017-02-04 00:15] LABS: MANUAL MICROSCOPIC REQUIRED? NO; REVIEW REQ? NO; URINE BILIRUBIN NEG (NEG)
[2017-02-04 00:16] LABS: ALB/GLOB RATIO 1.3 (0.9-2); THYROID STIMULATING HORMONE 0.736 uIu/ml (0.300-4.500)
[2017-02-04] MEDS ORDERED: AMOXICILLIN 250 MG CAP PO STA (01:25)
[2017-02-04] MEDS ORDERED: CLARITHROMYCIN 500 MG TAB PO ONE (01:30)
[2017-02-04 01:59] VITALS: BP 100/53; O2SAT 99
[2017-02-04 02:07] VITALS: PULSE 70
[2017-02-04] MEDS ORDERED: CLAR500T3 PO (02:14)
[2017-02-04] MEDS ORDERED: AMOX500T3 PO (02:14)
--- NOTE | 2017-02-04 02:16 | EMERGENCY ROOM VISIT NOTE ---
History First contact with patient: 22:32 Chief Complaint: SYNCOPE Stated Complaint: SYNCOPE Nursing Triage Summary: pt arrived via [facility] from home. Pt reports she has not been feeling well for a couple months. Has been evaluated at [facility] for possible liver CA. Pending CT and upper endoscopy. Pt states today she was sent home from work early due to continued abdominal and flank pain. Pt states she took a nap and awoke and went into the kitchen. Pt reports feeling dizzy, lightheaded and hot while standing in the kitchen. Pt states she sat down at the kitchen table and awoke on the floor. Suspected syncope. Denies head pain or any other new pain after syncope. Pt reports pain in mid to right abdomen and flank. Pain consistant x1mo. Pt also reporting right upper leg pain x1mo. Pt also complaining of lightheadedness. History of Present Illness The patient is a 31 year old female who presents to the Emergency Room with complaints of abdominal pain and syncope. The patient states that she has had right upper quadrant pain for several weeks. The patient had a cholecystectomy a few months ago and during the surgery, they found a lesion on her liver. She states that they told her this was likely benign. She followed up with her primary care provider because she felt she was jaundiced and had nausea. They scheduled a CT of the liver which she had performed yesterday. She also had an upper endoscopy but does not know the results of this. She reports she has had pain radiating from the right upper quadrant into the back for several weeks. She has associated nausea without vomiting. She reports that tonight she was in the kitchen and was walking around when she began to feel lightheaded. She believes that she passed out. She does admit that she has not been eating or drinking normally. She denies any urinary symptoms or changes in bowel movements. She denies any chest pain, shortness of breath or fevers. Review of Systems A complete 10 point review of systems was reviewed with the patient with pertinent positives and negatives as per history of present illness. All else were negative. Past Medical/Surgical History Medical Problems: (1) Abdominal pain (2) Biliary colic (3) Cholelithiases (4) Vomiting Surgical Problems: (1) H/O: hysterectomy Family History Gallbladder disease Social History Smoking Status: Current Every Day Smoker Alcohol Use: none Drug Use: none Occupation Status: employed Current/Historical Medications Scheduled Amoxicillin (Amoxil), 2 TAB PO BID Clarithromycin (Biaxin), 1 TAB PO BID Omeprazole (Prilosec), 20 MG PO DAILY Scheduled PRN Dicyclomine Hcl (Dicyclomine Hcl), 20 MG PO QID PRN for Pain Ondansetron Hcl (Zofran), 4 MG PO Q6 PRN for Nausea Allergies Coded Allergies: BEE STING (Verified Allergy, Severe, ANAPHYLAXIS, 12/01/16) Physical Exam Vital Signs Date Time Temp Pulse Resp B/P (MAP) Pulse Ox O2 Delivery O2 Flow Rate FiO2 02/04/17 02:07 70 02/04/17 01:59 86 18 100/53 99 Room Air 02/04/17 01:03 65 18 92/43 99 Room Air 02/03/17 23:38 93/54 02/03/17 22:15 71 96/61 81 102/60 87 106/68 02/03/17 22:04 70 02/03/17 21:54 36.5 90 24 103/48 100 Room Air 02/03/17 21:54 100 Room Air Physical Exam VITALS: Vitals are noted on the nurse's note and reviewed by myself. Vital signs stable. GENERAL: This is a 31-year-old female, in no acute distress, nondiaphoretic, well-developed well-nourished. SKIN: The skin was without rashes, erythema, edema, or bruising. HEAD: Normocephalic atraumatic. EARS: External auditory canals clear, tympanic membranes pearly wing without erythema or effusion bilaterally. EYES: Pupils equal round and reactive to light and accommodation. Conjunctivae without injection, sclerae without icterus. Extraocular movements intact. MOUTH: Mucous membranes moist. Tonsils are not enlarged. Pharynx without erythema or exudate. NECK: Supple without nuchal rigidity. No lymphadenopathy. HEART: Regular rate and rhythm without murmurs gallops or rubs. LUNGS: Clear to auscultation bilaterally without wheezes, rales or rhonchi. ABDOMEN: Positive bowel sounds x 4. Soft, nondistended with tenderness to palpation in the epigastric region and right upper quadrant. No guarding or rebound tenderness. NEURO: Patient was alert and oriented to person place and time. Medical Decision & Procedures ER Provider Diagnostic Interpretation: CHEST X-RAY: No acute cardiopulmonary findings. Laboratory Results 02/03/17 23:29 Red Blood Count 4.27, Mean Corpuscular Volume 89.7, Mean Corpuscular Hemoglobin 30.4, Mean Corpuscular Hemoglobin Concent 33.9, Mean Platelet Volume 9.7, Neutrophils (%) (Auto) 49.3, Lymphocytes (%) (Auto) 40.9, Monocytes (%) (Auto) 5.0, Eosinophils (%) (Auto) 3.9, Basophils (%) (Auto) 0.6, Neutrophils # (Auto) 3.92, Lymphocytes # (Auto) 3.25, Monocytes # (Auto) 0.40, Eosinophils # (Auto) 0.31, Basophils # (Auto) 0.05 02/03/17 23:29 Test 02/03/17 23:29 02/03/17 23:38 White Blood Count 7.95 K/uL (4.8-10.8) Red Blood Count 4.27 M/uL (4.2-5.4) Hemoglobin 13.0 g/dL (12.0-16.0) Hematocrit 38.3 % (37-47) Mean Corpuscular Volume 89.7 fL (80-100) Mean Corpuscular Hemoglobin 30.4 pg (25-34) Mean Corpuscular Hemoglobin Concent 33.9 g/dl (32-36) Platelet Count 241 K/uL (130-400) Mean Platelet Volume 9.7 fL (7.4-10.4) Neutrophils (%) (Auto) 49.3 % Lymphocytes (%) (Auto) 40.9 % Monocytes (%) (Auto) 5.0 % Eosinophils (%) (Auto) 3.9 % Basophils (%) (Auto) 0.6 % Neutrophils # (Auto) 3.92 K/uL (1.4-6.5) Lymphocytes # (Auto) 3.25 K/uL (1.2-3.4) Monocytes # (Auto) 0.40 K/uL (0.11-0.59) Eosinophils # (Auto) 0.31 K/uL (0-0.5) Basophils # (Auto) 0.05 K/uL (0-0.2) RDW Standard Deviation 43.2 fL (36.4-46.3) RDW Coefficient of Variation 13.1 % (11.5-14.5) Immature Granulocyte % (Auto) 0.3 % Immature Granulocyte # (Auto) 0.02 K/uL (0.00-0.02) Anion Gap 7.0 mmol/L (3-11) Est Creatinine Clear Calc Drug Dose 107.4 ml/min Estimated GFR () 136.2 Estimated GFR (Non- 117.5 BUN/Creatinine Ratio 22.3 (10-20) Calcium Level 9.0 mg/dl (8.5-10.1) Total Bilirubin 0.2 mg/dl (0.2-1) Aspartate Amino Transf (AST/SGOT) 8 U/L (15-37) Alanine Aminotransferase (ALT/SGPT) 8 U/L (12-78) Alkaline Phosphatase 46 U/L (45-117) Total Protein 6.4 gm/dl (6.4-8.2) Albumin 3.6 gm/dl (3.4-5.0) Globulin 2.8 gm/dl (2.5-4.0) Albumin/Globulin Ratio 1.3 (0.9-2) Lipase 164 U/L (73-393) Thyroid Stimulating Hormone (TSH) 0.736 uIu/ml (0.300-4.500) Urine Color DK YELLOW Urine Appearance CLEAR (CLEAR) Urine pH 5.5 (4.5-7.5) Urine Specific [place] 1.034 (1.000-1.030) Urine Protein NEG (NEG) Urine Glucose (UA) NEG (NEG) Urine Ketones TRACE (NEG) Urine Occult Blood NEG (NEG) Urine Nitrite NEG (NEG) Urine Bilirubin NEG (NEG) Urine Urobilinogen NEG (NEG) Urine Leukocyte Esterase NEG (NEG) Urine Test NEG (NEG) Medications Administered Medications (Trade) Dose Ordered Sig/Marcus Route Start Time Stop Time Status Last Admin Dose Admin Sodium Chloride 1,000 ml @ 999 mls/hr Q1H1M STAT IV 02/03/17 22:43 02/03/17 23:43 DC 02/03/17 23:39 999 MLS/HR Sodium Chloride 1,000 ml @ 999 mls/hr Q1H1M STAT IV 02/03/17 23:47 02/04/17 00:47 DC 02/04/17 01:06 999 MLS/HR Amoxicillin (Amoxil Cap) 1,000 mg NOW STAT PO 02/04/17 01:25 02/04/17 01:27 DC 02/04/17 01:54 1,000 MG Clarithromycin (Biaxin Tab) 500 mg NOW ONCE PO 02/04/17 01:30 02/04/17 01:31 DC 02/04/17 01:55 500 MG ECG Indication: syncope Rate (beats per minute): 78 Rhythm: normal sinus Findings: no acute ischemic change, no ectopy Comparison ECG Date: no prior available ED Course The patient was evaluated as above. Labs were drawn and IV access was obtained. Patient was medicated with 1 L normal saline solution. Patient was reevaluated and findings were discussed. She was given an additional 1 L normal saline solution. She was given initial doses of amoxicillin and clarithromycin. Discharge instructions were reviewed with the patient. The patient verbalized understanding of my assessment and treatment plan and was discharged home in good condition. Medical Decision Differential diagnosis includes infection, pancreatitis, malignancy, peptic ulcer disease, gastritis, bowel obstruction, colitis, among others. The patient is a 31-year-old female who presents today complaining of abdominal pain and a syncopal episode. Labs revealed no leukocytosis, anemia or concerning electrolyte abnormalities. Urinalysis was not suggestive of infection. LFTs were not elevated. Orthostatic vital signs were positive, as the patient did become more tachycardic with standing up. She was hydrated and felt better. Previous records were obtained by case management. A CT was performed yesterday but the results are not completed at this time. EGD results were reviewed and did show that the patient was positive for H. pylori. She will be treated for this with triple therapy. I do not feel that further imaging of the abdomen and pelvis is necessary at this time, as the patient has had symptoms ongoing for several weeks. I do not suspect cardiac or pulmonary source of her pain. I feel that the syncope was likely secondary to dehydration , as the patient has not been eating or taking much due to her abdominal pain. Based on the patient's presentation and work up, I feel the patient is stable for outpatient treatment. The patient was educated to return to the emergency department for any worsening of their current condition or new/concerning symptoms. 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 The patient's case was reviewed with Dr. Randle, ED attending physician, who agreed with my assessment and treatment plan. Blood pressure screening: Patient was found to be slightly hypotensive, however this appears to be the patient's baseline. Medication reconciliation: I attest that I have personally reviewed the patient 's current medication list. Impression Primary Impression: RUQ abdominal pain Additional Impressions: H. pylori infection Syncope Departure Information Dispostion Home / Self-Care Condition GOOD Prescriptions Clarithromycin (BIAXIN) 500 Mg Tab 1 TAB PO BID for 14 Days, #28 TAB Prov: Anupama Charles PA-C 02/04/17 Amoxicillin (AMOXIL) 500 Mg Tab 2 TAB PO BID for 14 Days, #56 TAB Prov: Anupama Charles PA-C 02/04/17 Referrals Casimiro Jones M.D. (PCP) Patient Instructions [facility] Additional Instructions Antibiotics as prescribed. For pain control, you can use the following [id number] medicines (if >12 yo): - Regular strength (325mg/tab) Tylenol (acetaminophen) 2 tabs every 4-6 hours as needed. Do not exceed 12 tablets in a 24 hour period. Avoid taking more than 4 grams (4000 mg) of Tylenol per day. This includes any other sources of acetaminophen you may take on a regular basis. You should begin taking the Prilosec twice daily. Follow-up with gastroenterology as scheduled. Rest and drink plenty of fluids. Return here for any worsening or new/concerning symptoms. Problem Qualifiers
--- NOTE | 2017-02-04 06:10 | DIAGNOSTIC IMAGING REPORT ---
CHEST ONE VIEW PORTABLE CLINICAL HISTORY: syncope mental status change COMPARISON STUDY: No previous studies for comparison. FINDINGS: The bones soft tissues and hemidiaphragms are normal. The cardiomediastinal silhouette is normal. The lungs are clear. The pulmonary vasculature is normal. IMPRESSION: Negative chest. The above report was generated using voice recognition software. It may contain grammatical, syntax or spelling errors. Electronically signed by: Sriram Glaser M.D. 02/04/2017 6:09 AM Dictated Date/Time: 02/04/2017 6:09 AM
== END 2017-02-04 02:22 | disposition home or self-care (01) ==
LOC: EDBD 21:54 → C.EDC 21:57
DX: E86.0 Dehydration (principal); R55 Syncope and collapse; A04.8 Other specified bacterial intestinal infections; Z90.49 Acquired absence of other specified parts of digestive tract; K76.9 Liver disease, unspecified; Z90.710 Acquired absence of both cervix and uterus; F17.210 Nicotine dependence, cigarettes, uncomplicated; Z79.899 Other long term (current) drug therapy

== ENCOUNTER 2018-10-27 00:12 | Inpatient (IN) ==
--- OUTSIDE RECORDS SUMMARY | 2018-10-27 00:16 | External Medical Summary | Continuity of Care Document ---
:1985 Author Name Tre Hilliard, Provider Address Unavailable Unavailable , Care Team Providers Name Role Phone Christo Puentes DO Unavailable [email or web address] Unavailable Unavailable Unavailable Unavailable Problems Chronic cholecystitis (575.11) (K81.1) Cholelithiasis (574.20) (K80.20) Allergies and Adverse Reactions No Known Drug Allergies (Allergy) Medications No Reported Medications Refills: 0 Procedures History of cholecystectomy laparoscopic Status: Completed 01-Dec-2016 0:00 History of tonsillectomy Status: Complet ed History of hysterectomy Status: Complete d Immunizations Immunizations not documented Family History Mother Family history of hypertension (V17.49) (Z82.49) Status: Act tracy Grandparent Family history of diabetes mellitus (V18.0) (Z83.3) Status: Active Social History - Smoking Status Smoker. current status unknown Plan of Treatment Planned Observations Planned Goals not documented Results No Known Results Results not documented Encounters Appointment; Christo Puentes DO 13-Dec-2016 15:20 Encounter Diagnosis: Problem not documented
[2018-10-27] MEDS ORDERED: SODIUM CHLORIDE 0.9% 1000ML 2,000 ML IV ONE (00:28)
[2018-10-27] MEDS ORDERED: ACETAMINOPHEN 1,000 MG/100 ML VIAL IV STA (00:28)
[2018-10-27] MEDS ORDERED: fentaNYL citrate 100 MCG/2 ML VIAL IV STA ×2 (00:28→01:05)
[2018-10-27 00:54] LABS: Basophils # (auto) 0.04 K/uL (0-0.2); Basophils % (auto) 0.5 %; Eosinophils # (auto) 0.01 K/uL (0-0.5); Eosinophils % (auto) 0.1 %; Hematocrit (blood only) 40.6 % (37-47); Hemoglobin 14.2 g/dL (12.0-16.0); Immature Granulocytes # (auto) 0.02 K/uL (0.00-0.02); Immature Granulocytes % (auto) 0.3 %; Lymphocytes # (auto) 3.06 K/uL (1.2-3.4); Lymphocytes % (auto) 38.3 %; Mean Corpuscular Volume 87.1 fL (80-100); Mean Platelet Volume 9.6 fL (7.4-10.4); Monocytes # (auto) 0.73 K/uL (0.11-0.59); Monocytes % (auto) 9.1 %; Neutrophils # (auto) 4.13 K/uL (1.4-6.5); Neutrophils % (auto) 51.7 %; Platelet Count 161 K/uL (130-400); RDW Coefficient of Variation 12.7 % (11.5-14.5); RDW Standard Deviation 40.8 fL (36.4-46.3); Red Blood Count 4.66 M/uL (4.2-5.4); White Blood Count 7.99 K/uL (4.8-10.8)
[2018-10-27 01:14] LABS: Alanine Aminotransferase 48 U/L (12-78); Albumin Level 3.4 gm/dl (3.4-5.0); Aspartate Aminotransferase 67 U/L (15-37); BUN Creatinine Ratio 12.7 (10-20); Bilirubin Direct 0.1 mg/dl (0-0.2); Blood Urea Nitrogen 10 mg/dl (7-18); Calcium 8.8 mg/dl (8.5-10.1); Carbon Dioxide 22 mmol/L (21-32); Chloride 100 mmol/L (98-107); Creatinine Clr Calc Pharmacy 79.2 ml/min; Est GFR (African American) 113.2; Est GFR (Non-African American) 97.7; Glucose 122 mg/dl (70-99); Magnesium 2.1 mg/dl (1.8-2.4); Potassium 3.8 mmol/L (3.5-5.1); Sodium 131 mmol/L (136-145)
[2018-10-27 01:17] LABS: Alkaline Phosphatase 80 U/L (45-117); Bilirubin,Total 0.4 mg/dl (0.2-1); Creatine Kinase 32 U/L (26-192); Total Protein 7.4 gm/dl (6.4-8.2); Troponin I < 0.015 ng/ml (0-0.045)
[2018-10-27] MEDS ORDERED: HYDROmorphone INJ 0.5 MG/0.5 ML SYR IV STA (01:43)
[2018-10-27] MEDS ORDERED: SODIUM CHLORIDE 0.9% 1000ML 1,000 ML IV ONE (01:43)
[2018-10-27] MEDS ORDERED: VANCOMYCIN HCL 1,250 MG in SODIUM CHLORIDE 0.9% 500 ML IV ONE (01:45)
[2018-10-27] MEDS ORDERED: CEFEPIME 2,000 MG/20 ML VIAL IV STA (01:45)
[2018-10-27] MEDS ORDERED: VANCOMYCIN CONSULT ACTIVE PRN ×2 (01:45→04:22)
[2018-10-27 01:47] LABS: Lyme Ab IgG w/WB Rflx Negative (Negative)
[2018-10-27 01:59] LABS: Lyme Ab IgM w/WB Rflx Positive (Negative)
[2018-10-27] MEDS ORDERED: IOVERSOL 100ml IV PRN (02:16)
[2018-10-27 02:24] LABS: Pregnancy Test, Serum Negative (Negative)
[2018-10-27 02:40] LABS: Appearance Urine Clear (Clear); Bacteria Urine Automated 4+ (Negative); Bilirubin Urine Negative (Negative); Blood Urine Negative (Negative); Color Urine Yellow; Epithelial Cell Urine Auto >30 /lpf (0-5); Glucose Urine UA Negative (Negative); Ketones Urine Trace (Negative); Leukocyte Esterase Urine Negative (Negative); Nitrite Urine Positive (Negative); Protein Urine 1+ (Negative); RBC Urine Automated 0-4 /hpf (0-4); Specific Gravity Urine 1.031 (1.000-1.030); Urobilinogen Urine Negative (Negative); pH Urine 6.5 (4.5-7.5)
[2018-10-27 02:57] LABS: Amphetamines+Metham, Urine Pos (Neg); Barbiturates, Urine Neg (Neg); Benzodiazepine, Urine Neg (Neg); Cocaine, Urine Neg (Neg); MDMA (Ecstacy), Urine Neg (Neg); Methadone, Urine Neg (Neg); Opiate, Urine Pos (Neg); Phencyclidine, Urine Neg (Neg)
[2018-10-27 03:04] LABS: Mucus Urine Present (None Prsent)
--- NOTE | 2018-10-27 03:59 | Emergency Department Note ---
Entered by Richard Nguyen acting as a scribe for David Harman MD ED Provider Note Name: Keyon Kapoor Age: 33, female Arrives Via: Walk in Informant: Patient CC: Neck stiffness HPI: The patient is a 33 year old female who presents to the emergency department with complaints of constant neck stiffness beginning yesterday. The patient states that she noticed some low back pain radiating to her right hip 3- 4 days ago. She notes that over the last few days, her pain has started to expand down to her right lateral anterior thigh, and she reports that it feels as though someone is stabbing her thigh. The patient states that she felt feve rish two days ago, and she notes that she has been tired and fatigued over the last two days. She reports that her fever has reached a high of 102. The patient states that she developed some next stiffness yesterday. She also complains of dry heaving and feeling lightheaded with standing. She denies any headache, photophobia, vomiting, urinary burning, abdominal pain, diarrhea, respiratory issues, sinus congestion, sore throat, a decreased appetite, and trauma. She also denies any recent antibiotic use. ROS: See above HPI for pertinent positives & negatives. A total of 10 systems reviewed and were otherwise negative. Past Medical History: Choledocholithiasis, H. pylori infection Past Surgical History: Hysterectomy Family History: No significant family history Social History: Unknown if ever smoker Home Medications: Hydrocodone-acetaminophen Allergies: Bee venom protein Physical: Vitals: BP 67/39, Pulse 77, Resp 18, Temp 99.0 F, O2 Sat 97 Exam: GENERAL: Patient is ill appearing and in moderate distress, severely dehydrated appearing, heavily tattooed. EYES: No scleral icterus, unremarkable pupils. ENT: Mucous membranes dry, no nasal congestion, no pharyngeal erythema and exudate. NECK: No masses appreciated, no meningismus, trachea is midline, pain with ROM of neck. RESPIRATORY: No dyspnea. Clear to auscultation and equal bilaterally. No wheeze, no rhonchi. CARDIOVASCULAR: Regular rhythm and tachycardic. No murmurs, rubs, gallops appreciated. GASTROINTESTINAL: Abdomen soft, non-tender, no peritonitis. Bowel sounds positive. No masses appreciated. BACK: No midline tenderness, no CVA tenderness, pain to palpation of lower back and right lateral hip. EXTREMITIES: Normal motion all extremities, no cyanosis, no edema. NEUROLOGIC: Alert and oriented, no acute motor or sensory deficits, no focal weakness, cranial nerves grossly intact. SKIN: No rash, no jaundice, no diaphoresis. Poor skin turgor. ED Course: Prior Medical Record, Triage/Nursing Notes, Medications, Allergies reviewed by Me 0023: The patient was evaluated in room A4. A complete history and physical exam was performed. 0105: I reevaluated and updated the patient. She is feeling better with fluids. Her blood pressure has improved. She notes that her neck is still sore but she reports that most of her pain is now into her right lower back. 0137: I rechecked the patient. She is starting to feel better. She notes that she still feels lightheaded when she sits up. She still appears dehydrated. Further fluids were ordered. 0204: Upon reevaluation, the patient is stable. I discussed the findings and the treatment plan with the patient. She expresses agreement and understanding. I spoke with Dr. Chowdh[facility]. He agrees with further workup and monitoring. We discussed imaging. He suggests getting CT imaging of the neck and abdomen first, and then he will get MRIs of the entire spine if CTs are negative. The patient will be evaluated for further management. 0209: I rechecked the patient. Vital Signs: reviewed and remarkable for hypotension Labs: Reviewed and remarkable for +Crp, bacteria in urine, +Lyme IgM Interventions: Saline Lock, NSS bolus 3L IV, Cefepime 2gm IV, Vanco 1.25gm IV, Fentanyl 25mcg IV, Fen 50mcg IV, dilaudid .5mg IV Imaging: X ray results are stated below per my interpretation: Chest: 1 view: No infiltrate, no effusion, normal cardiac border. [facility] Radiologist interpretation reviewed by me: CT NECK: 3 nodules along the left aspect of tracheal wall at level of T1 and T2 measuring up to 11 x 10 x 5 mm. These could represent mucus, but tracheal lesions such as papillomatosis or amyloidosis is not excluded. No fluid collections. No adenopathy. Osseous structures are unremarkable. Sinuses and lung apices are clear. Tongue piercing. CT ABDOMEN & PELVIS With Contrast: Appendix not definitively identified, but no pericecal inflammatory changes to suggest acute appendicitis. Post cholecystectomy. Biliary ductal dilation which may be physiologic post cholecystectomy. Mild periportal edema, nonspecific. Considerations include aggressive hydration and hepatitis. Focal hypodensity in liver along falciform ligament, likely focal fatty infiltration. Small amount of free fluid in pelvis. No free air. The uterus is absent. 1.9cm enhancing lesion in left ovary, likely corpus luteal cyst. No bowel obstruction. [id number]-[id number] stool in colon. 7 mm lucency with surrounding sclerosis in left iliac wing, consistent with benign lesion. Radiologist: David Peace MD. EKG: EKG results per my interpretation. Indication - neck pain. Sinus rhythm, 85, no ectopy, no ischemia, QTC 445. Consults: 0204: I reviewed the patient's case with Dr. Chowdhury - Hospitalist, [facility]. He agrees with further workup and monitoring. We discussed imaging. He suggests getting CT imaging of the neck and abdomen first, and then he will get MRIs of the entire spine if CTs are negative. He will evaluate the patient for further management. Blood pressure: Hypotensive - will be monitored by hospitalist. Disposition: Differentials: Differential diagnosis includes: viral syndrome, otitis, pharyngitis, pneumonia, influenza, meningitis, urinary tract infection, septic arthritis, soft tissue infectious process, intra-abdominal process, sepsis, bacteremia, as well as others were entertained. Medical Decision Makin yr old female with fevers, hypotension in right lower back pain radiating to right thigh and now increasing neck stiffness throughout the day. Very un comfortable on arrival and ill appearing with clearly dehydration. She has sciatic like pain right as neck stiffness. She does not have meningitis as no headache, light issues. Furthermore with low back pain, possible abscess I do not feel that LP would be safe. BP did improved with aggressive fluid resus and further fluids given until urinating. Broad spectrum ABX used given high risk sepsis. UA questionable UTI though may just be poor catch and concentrated given she has no UTI symptoms and back pain is clearly low right rather than typical flank. She has normal lactate/wbc, but CRP is clearly quite elevated. Lyme is concerning for acute infection but she has no known tick bites and again symptoms do not quite seem lyme related. CT neck/abdo/pelv without any clear cause of her symptoms. Hospitalist will bring in for further management and evaluation given her severity on arrival and likely need for further work-up and evaluation. We discussed MRI and he notes that they will manage that which seems reasonable. Appreciate hospitalists input. Impression: Sepsis, hypotension, bacteria in urine, lumbar back pain, neck pain. I have personally spent greater than 30 minutes of critical care time in the direct management of this patient. Acute Hypotension in setting of sepsis. This was a life/limb threatening event. This includes time spent evaluating patient, direct bedside care, chart review, placing orders, interpretation of diagnostic studies, discussion with consultants, patient, and family members, as well as other required patient management activities. This 30 minutes is in excess of all separately billable procedures. David Harman MD The scribe's documentation has been prepared under my direction and personally reviewed by me in its entirety. I confirm that the note above accurately reflects all work, treatment, procedures, and medical decision making performed by me. 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 Beliefs That Will Affect Care: None Current Living Situation: Family Feels Safe at Home: Yes Safety Concerns: Feels Safe At This Time Smoking Status: Current every day smoker Tobacco Type: cigarettes Cigarettes Per Day: 10 Hx Alcohol Use: Yes Alcohol type: beer Hx Substance Use: No Results & Data Vital Signs Vital Signs - 24 hr 10/27/18 00:17 10/27/18 01:23 10/27/18 01:50 Temperature 37.2 C Temperature Source Oral Sepsis Recent Fever Within 48 Hours Yes Sepsis New/Unexplained Change in Mental Status No Sepsis Action Taken by Nursing No Action Required Pulse Rate 62 Pulse Rate [Apical] 77 83 Respiratory Rate 18 18 16 Respiratory Effort / Characteristics Non-Labored Spontaneous Respiratory Depth Normal Blood Pressure 67/39 L Blood Pressure [Right Arm] 105/53 L 94/56 L Blood Pressure Mean 48 Blood Pressure Mean [Right Arm] 70 68 Pulse Oximetry 97 97 95 Oxygen Delivery Method Room Air Room Air Room Air 10/27/18 02:03 10/27/18 02:17 Temperature Temperature Source Sepsis Recent Fever Within 48 Hours Sepsis New/Unexplained Change in Mental Status Sepsis Action Taken by Nursing Pulse Rate Pulse Rate [Apical] 94 H 86 Respiratory Rate 16 16 Respiratory Effort / Characteristics Non-Labored Spontaneous Non-Labored Spontaneous Respiratory Depth Normal Normal Blood Pressure Blood Pressure [Right Arm] 89/53 L 91/55 L Blood Pressure Mean Blood Pressure Mean [Right Arm] 65 67 Pulse Oximetry 95 98 Oxygen Delivery Method Room Air Room Air Home Medications Current Medication List: was personally reviewed by me Laboratory Data Attestation: I reviewed the patient's lab results. Result diagrams: 10/27/18 00:41 10/27/18 00:41 Lab Results 10/27/18 10/27/18 10/27/18 Range/Units 00:41 00:41 00:41 WBC 7.99 (4.8-10.8) K/uL RBC 4.66 (4.2-5.4) M/uL Hgb 14.2 (12.0-16.0) g/dL Hct 40.6 (37-47) % MCV 87.1 (80-100) fL MCH 30.5 (25-34) pg MCHC 35.0 (32-36) g/dL RDW Std Deviation 40.8 (36.4-46.3) fL RDW Coeff of Joelle 12.7 (11.5-14.5) % Plt Count 161 (130-400) K/uL MPV 9.6 (7.4-10.4) fL Immature Gran % (Auto) 0.3 % Neut % (Auto) 51.7 % Lymph % (Auto) 38.3 % [place] % (Auto) 9.1 % Eos % (Auto) 0.1 % Baso % (Auto) 0.5 % Immature Gran # (Auto) 0.02 (0.00-0.02) K/uL Neut # (Auto) 4.13 (1.4-6.5) K/uL Lymph # (Auto) 3.06 (1.2-3.4) K/uL [place] # (Auto) 0.73 H (0.11-0.59) K/uL Eos # (Auto) 0.01 (0-0.5) K/uL Baso # (Auto) 0.04 (0-0.2) K/uL Sodium 131 L (136-145) mmol/L Potassium 3.8 (3.5-5.1) mmol/L Chloride 100 (98-107) mmol/L Carbon Dioxide 22 (21-32) mmol/L Anion Gap 9.0 (3-11) BUN 10 (7-18) mg/dl Creatinine 0.79 (0.6-1.2) mg/dl Est Cr Clr Drug Dosing 79.2 ml/min Est GFR ( Amer) 113.2 Est GFR (Non-Af Amer) 97.7 BUN/Creatinine Ratio 12.7 (10-20) Glucose 122 H (70-99) mg/dl Lactate 1.1 (0.4-2.0) mmol/L Calcium 8.8 (8.5-10.1) mg/dl Magnesium 2.1 (1.8-2.4) mg/dl Total Bilirubin 0.4 (0.2-1) mg/dl Direct Bilirubin 0.1 (0-0.2) mg/dl AST 67 H (15-37) U/L ALT 48 (12-78) U/L Alkaline Phosphatase 80 (45-117) U/L Total Creatine Kinase 32 (26-192) U/L Troponin I < 0.015 (0-0.045) ng/ml C-Reactive Protein 13.60 H (0-0.29) mg/dl Total Protein 7.4 (6.4-8.2) gm/dl Albumin 3.4 (3.4-5.0) gm/dl Lipase 112 (73-393) U/L HCG, Qual (Negative) Lyme Disease IgG Ab (Negative) Lyme Disease IgM Ab (Negative) 10/27/18 10/27/18 Range/Units 00:41 00:42 WBC (4.8-10.8) K/uL RBC (4.2-5.4) M/uL Hgb (12.0-16.0) g/dL Hct (37-47) % MCV (80-100) fL MCH (25-34) pg MCHC (32-36) g/dL RDW Std Deviation (36.4-46.3) fL RDW Coeff of Joelle (11.5-14.5) % Plt Count (130-400) K/uL MPV (7.4-10.4) fL Immature Gran % (Auto) % Neut % (Auto) % Lymph % (Auto) % [place] % (Auto) % Eos % (Auto) % Baso % (Auto) % Immature Gran # (Auto) (0.00-0.02) K/uL Neut # (Auto) (1.4-6.5) K/uL Lymph # (Auto) (1.2-3.4) K/uL [place] # (Auto) (0.11-0.59) K/uL Eos # (Auto) (0-0.5) K/uL Baso # (Auto) (0-0.2) K/uL Sodium (136-145) mmol/L Potassium (3.5-5.1) mmol/L Chloride (98-107) mmol/L Carbon Dioxide (21-32) mmol/L Anion Gap (3-11) BUN (7-18) mg/dl Creatinine (0.6-1.2) mg/dl Est Cr Clr Drug Dosing ml/min Est GFR ( Amer) Est GFR (Non-Af Amer) BUN/Creatinine Ratio (10-20) Glucose (70-99) mg/dl Lactate (0.4-2.0) mmol/L Calcium (8.5-10.1) mg/dl Magnesium (1.8-2.4) mg/dl Total Bilirubin (0.2-1) mg/dl Direct Bilirubin (0-0.2) mg/dl AST (15-37) U/L ALT (12-78) U/L Alkaline Phosphatase (45-117) U/L Total Creatine Kinase (26-192) U/L Troponin I (0-0.045) ng/ml C-Reactive Protein (0-0.29) mg/dl Total Protein (6.4-8.2) gm/dl Albumin (3.4-5.0) gm/dl Lipase (73-393) U/L HCG, Qual Negative (Negative) Lyme Disease IgG Ab Negative (Negative) Lyme Disease IgM Ab Positive A (Negative) Administered Medications Sodium Chloride (Nss 1000ml) 1,000 mls @ 150 mls/hr IV .Q6H40M JIM Stop: 11/26/18 04:21 Last Admin: 10/27/18 05:08 Dose: 150 mls/hr Documented by: [id number] Discontinued Medications Fentanyl Citrate (Fentanyl Citrate) 25 mcg IV NOW STA Stop: 10/27/18 00:29 Last Admin: 10/27/18 00:44 Dose: 25 mcg Documented by: [id number] Fentanyl Citrate (Fentanyl Citrate) 50 mcg IV NOW STA Stop: 10/27/18 01:06 Last Admin: 10/27/18 01:11 Dose: 50 mcg Documented by: [id number] Hydromorphone HCl (Dilaudid) 0.5 mg IV NOW STA Stop: 10/27/18 01:44 Last Admin: 10/27/18 02:02 Dose: 0.5 mg Documented by: [id number] Sodium Chloride (Nss 1000ml) 2,000 mls @ 999 mls/hr IV .Q2H1M ONE Stop: 10/27/18 02:28 Last Infusion: 10/27/18 02:38 Dose: 0 mls/hr Documented by: [id number] Admin: 10/27/18 00:36 Dose: 999 mls/hr Documented by: [id number] Acetaminophen (Ofirmev) 1,000 mg in 100 mls @ 400 mls/hr IV NOW STA Stop: 10/27/18 00:42 Last Infusion: 10/27/18 01:01 Dose: 0 mls/hr Documented by: [id number] Admin: 10/27/18 00:44 Dose: 400 mls/hr Documented by: [id number] Sodium Chloride (Nss 1000ml) 1,000 mls @ 999 mls/hr IV .Q1H1M ONE Stop: 10/27/18 02:43 Last Infusion: 10/27/18 03:05 Dose: 0 mls/hr Documented by: [id number] Admin: 10/27/18 02:02 Dose: 999 mls/hr Documented by: [id number] Cefepime HCl (Maxipime) 2,000 mg in 20 mls @ 5 mls/min IV NOW STA; Protocol Stop: 10/27/18 01:48 Last Admin: 10/27/18 02:02 Dose: 5 mls/min Documented by: [id number] Vancomycin HCl 1,250 mg/ (Sodium Chloride) 525 mls @ 200 mls/hr IV NOW ONE; Protocol Stop: 10/27/18 04:22 Last Infusion: 10/27/18 05:36 Dose: 0 mls/hr Documented by: [id number] Admin: 10/27/18 02:53 Dose: 200 mls/hr Documented by: [id number] Ioversol (Optiray 320 100ml) 94 ml IV ONCE PRN PRN Reason: Interaction Checking Stop: 10/31/18 02:15 Last Admin: 10/27/18 02:17 Dose: 94 ml Documented by: [id number] Discharge Plan Visit Data *Final* Discharge Date/Time: 10/27/18 03:41 Chief Complaint: Neck Injury/Pain Stated Complaint: NECK PAIN,BACK PAIN ED Provider: David Harman Discharge Problem: Sepsis, Hypotension, Bacteria in urine, Lumbar back pain, Neck pain Patient Disposition: Admitted As Inpatient Discharge Instructions Interventions: ED Discharge Assessment Last Done: 10/27/18 03:41 Discharge Problem: Sepsis Qualifiers: Sepsis type: sepsis due to unspecified organism Qualified Code(s): A41.9 - Sepsis, unspecified organism Hypotension Qualifiers: Hypotension type: unspecified hypotension type Qualified Code(s): I95.9 - Hypotension, unspecified The scribe's documentation has been prepared under my direction and personally reviewed by me in its entirety. I confirm that the note above accurately reflects all work, treatment, procedures, and medical decision making performed by me.
[2018-10-27] MEDS ORDERED: ONDANSETRON INJ 2 MG/ML 2 ML VIAL IV PRN (04:22)
[2018-10-27] MEDS ORDERED: NITROGLYCERIN SL 0.4 MG/TAB TAB SL PRN (04:22)
[2018-10-27] MEDS: SODIUM CHLORIDE 0.9% 1000ML 1,000 ML IV SCH ×4 (05:08→23:09)
[2018-10-27 07:48] LABS: Hematocrit (blood only) 33.1 % (37-47); Hemoglobin 11.1 g/dL (12.0-16.0); Mean Corpuscular Hgb Conc 33.5 g/dL (32-36); Mean Corpuscular Volume 88.5 fL (80-100); Mean Platelet Volume 9.3 fL (7.4-10.4); Platelet Count 105 K/uL (130-400); RDW Coefficient of Variation 12.8 % (11.5-14.5); RDW Standard Deviation 41.7 fL (36.4-46.3); Red Blood Count 3.74 M/uL (4.2-5.4); White Blood Count 4.75 K/uL (4.8-10.8)
[2018-10-27 07:49] LABS: Basophils # (auto) 0.01 K/uL (0-0.2); Basophils % (auto) 0.2 %; Lymphocytes # (auto) 1.79 K/uL (1.2-3.4); Lymphocytes % (auto) 37.7 %; Monocytes # (auto) 0.45 K/uL (0.11-0.59); Monocytes % (auto) 9.5 %; Neutrophils % (auto) 52.6 %; RBC Morphology Unremarkable
[2018-10-27 07:59] LABS: BUN Creatinine Ratio 13.8 (10-20); Calcium 7.5 mg/dl (8.5-10.1); Creatinine Clr Calc Pharmacy 126.8 ml/min; Est GFR (African American) 142.7; Est GFR (Non-African American) 123.1
--- NOTE | 2018-10-27 08:15 | CT Scan Report ---
CT OF THE NECK WITH IV CONTRAST CLINICAL HISTORY: neck stiffness, fevers, hypotension COMPARISON STUDY: No previous studies for comparison. TECHNIQUE: Following IV administration of 94 mL of Optiray-320, helical axial images of the neck wer e obtained. Sagittal and coronal reconstructions were viewed. Automated exposure control was utiliz ed for the study. A dose lowering technique was utilized adhering to the principles of ALARA. FINDINGS: There is no abscess or lymphadenopathy within the neck. Major vasculature is patent. Visua lized portions of the intracranial contents are unremarkable. The parotid and submandibular glands ar e normal. Three nodules along the left aspect of the trachea at the level the thoracic inlet measure up to 8 mm. These favor mucus however tracheal lesions cannot be excluded. There is no cervical spine fracture. IMPRESSION: 1. Three nodules along the left aspect of the trachea at the level of thoracic inlet. Mucus is favore d although tracheal lesions could appear similar. 2. No acute process within the neck by CT. No abscess or lymphadenopathy. Electronically signed by: David Mensah M.D. 10/27/2018 8:14 AM
--- NOTE | 2018-10-27 08:21 | CT Scan Report ---
CT OF THE ABDOMEN AND PELVIS WITH CONTRAST CLINICAL HISTORY: right back/RLQ pain, fever, hypotension COMPARISON STUDY: Abdominal ultrasound December 01, 2016. TECHNIQUE: Following IV administration of 94 mL of Optiray-320, axial images of the abdomen and pelvi s were obtained from the lung bases to the proximal femurs. Images were reviewed in the axial, sagitt al, and coronal planes. IV contrast was administered without complication. Automated exposure contro l was utilized for the study. A dose lowering technique was utilized adhering to the principles of A DK. CT DOSE: 588.08 mGy.cm FINDINGS: Lung bases are clear. Mild biliary ductal dilatation is likely related to cholecystectomy. There is mild periportal edema. The spleen, adrenal glands and pancreas are unremarkable. There is no hydronephrosis. There is no peripancreatic infiltration. There is no evidence for a bowel obstructio n. Appendix is partially visualized. Visualized portions are normal. There is no right lower quadrant inflammation. A small amount of low-attenuation fluid within the pelvis is noted. 1.9 cm peripherall y enhancing left adnexal lesion suggests a corpus luteal cyst. Major vasculature is patent. No pneuma tosis, free air or portal venous gas is present. There are no suspicious osseous lesions. No lymphade nopathy. IMPRESSION: 1. No bowel obstruction. Appendix partially visualized. Visualized portions normal. No right lower qu adrant inflammation. 2. Small amount of fluid within the pelvis. 3. Mild periportal edema which is nonspecific but may be related to hydration. 4. Mild biliary ductal dilatation likely related to previous cholecystectomy. Electronically signed by: David Mensah M.D. 10/27/2018 8:20 AM
--- NOTE | 2018-10-27 08:52 | XRay Report ---
XR chest 1V portable CLINICAL HISTORY: sepsis COMPARISON STUDY: Chest radiograph February 03, 2017. FINDINGS: Lung volumes are normal. There is no pneumothorax or pleural effusion. There is no consolid ation or evidence for pulmonary edema. Cardiac size is unremarkable. Mediastinal contours are normal. IMPRESSION: No acute cardiopulmonary findings. Electronically signed by: David Mensah M.D. 10/27/2018 8:50 AM
[2018-10-27] MEDS: ACETAMINOPHEN 325 MG TAB PO PRN (09:06)
[2018-10-27] MEDS: PANTOprazole 40 MG TAB PO SCH (09:39)
[2018-10-27] MEDS: cefTRIAXone SODIUM 2,000 MG in DEXTROSE 5% 50 ML IV SCH ×2 (09:40→20:16)
--- NOTE | 2018-10-27 09:51 | History and Physical Report ---
DATE OF ADMISSION: 10/27/2018 CHIEF COMPLAINT: Back pain, neck pain, hypotension. HISTORY OF PRESENT ILLNESS: This is a 33-year-old female with past medical history significant for GERD, presents with ongoing back pain since last 2-3 days in the mid back radiating into her right lower extremity. As per the [facility] records, she was seen for back pain on 10/05 and prescribed Flexeril at that time, but patient says yesterday she did have some neck pain too. She felt like she was having fevers and she came to the ER and in the ER, she was hypotensive. With the fluid bolus, blood pressure improved. She was afebrile, no leukocytosis. Lactic acid was normal. Because of hypotension and ongoing symptoms, CT of abdomen and pelvis and CT soft tissue neck were ordered, which are still pending. Her Lyme screen is positive, but the patient denies any tick bites. [facility], but she did not note any tick bites and there are no rashes. Denies any headache, no blurred vision, no earache, no runny nose, no sore throat, no difficulty swallowing. Appetite is good. No chest pain or shortness of breath. No cough, no nausea, no abdominal pain. Normal bowel and bladder movements. No blood in the stools, no black stools, no hematuria, no burning micturition. No swelling in the legs. ALLERGIES: BEE VENOM. PAST MEDICAL HISTORY: As mentioned above. PAST SURGICAL HISTORY: Colonoscopy, EGDs with endoscopic ultrasound, hysteroscopy with biopsy, ligation of oviduct, tonsillectomy. MEDICATIONS: Omeprazole 20 mg p.o. daily. FAMILY HISTORY: No family history on file. SOCIAL HISTORY: Quit smoking, smoked half-pack a day for 14 years. No alcohol use, no drug use. Lives with her boyfriend. REVIEW OF SYMPTOMS: As per HPI. Rest of review of symptoms negative. PHYSICAL EXAMINATION: GENERAL: The patient is of moderate build, not in acute distress. VITAL SIGNS: Temperature 37.2, pulse 86, respiratory rate 16, blood pressure when she was brought in was 67/13, but with fluid bolus, came up to 91/55, oxygen 98% on room air. HEENT: No pallor, no icterus. Pupils equal, round, reactive to light. NECK: No neck masses, no carotid bruit. Can touch the chin to the chest, has some difficulty with lateral movements of the neck.Tenderness on palpation of the cervical spine? CARDIOVASCULAR: S1, S2 heard, regular rate and rhythm, no murmur, no gallop. RESPIRATORY SYSTEM: Normal AP diameter. No accessory muscle use. No wheezing, no crackles. ABDOMEN: Soft, bowel sounds present. Nontender. No distention. CENTRAL NERVOUS SYSTEM: Cranial nerves II-XII grossly intact. Nonfocal. EXTREMITIES: No edema, no erythema. LABORATORIES: WBC 7.9, hemoglobin 14.2, hematocrit 40.6, platelets 161. Sodium 131, potassium 3.8, chloride 100, bicarbonate 22, BUN 10, creatinine 0.7, serum glucose 122, lactate 1.1, calcium 8.8, magnesium 2.1, total bilirubin 0.4, direct bilirubin 0.1, AST 67, ALT 48, alkaline phosphatase 80. Total creatine kinase 32. Troponin I less than 0.015. Urinalysis pending. Urine drug screen pending. Lyme screen IgM positive, IgG negative. Chest x-ray; no acute findings. CT of the abdomen and pelvis, official reading pending.CT soft tissue neck pending ASSESSMENT AND PLAN: This is a 33-year-old female who presents with ongoing back pain for several days and neck pain since yesterday and subjective fevers comes to the Emergency Room where she was hypotensive. 1. Back pain, neck pain, hypotension in the Emergency Room, etiology unclear. She says she had fever at home, but in the Emergency Room, she is afebrile. No leukocytosis. Lactic acid is normal. In the Emergency Room, she was empirically started on IV vancomycin and cefepime, we will empirically continue with IV vancomycin and IV Rocephin 2 g b.i.d. for possible questionable meningitis, though seems less likely. Lyme screen IgM positive confirmation pending, but the patient denies any recent tick bites. We will consult Infectious Disease for further recommendation and if any need for lumbar puncture. We will follow the cultures, continue with antibiotics, aggressive fluids and closely monitor the blood pressure, also follow the drug screen and urinalysis nd imaging studies.To consider MRI of spine based on CT scan results. 2. Gastroesophageal reflux disease: Continue proton-pump inhibitor. 3. Deep vein thrombosis prophylaxis: Sequential compression devices. 4. Disposition: Admit to telemetry floor. Level 1 full code. MTDD
[2018-10-27] MEDS ORDERED: VANCOMYCIN HCL 1,000 MG in SODIUM CHLORIDE 0.9% 250 ML IV SCH (10:00)
[2018-10-27] MEDS: KETOROLAC TROMETHAMINE 15 MG/ML VIAL IV PRN ×2 (10:31→23:09)
[2018-10-27] MEDS: DOXYCYCLINE HYCLATE 100 MG in DEXTROSE 5% 100 ML IV SCH ×2 (10:33→20:11)
[2018-10-27] MEDS ORDERED: MoRPHine SULFATE 2 MG/ML CARP IV PRN (12:03)
[2018-10-27] MEDS ORDERED: Nursing to Pharmacy Communication ONE (16:17)
[2018-10-27] MEDS ORDERED: SODIUM CHLORIDE 0.9% 500 ML IV ONE (16:30)
--- NOTE | 2018-10-27 16:40 | Infectious Disease Consult ---
Date of Consultation October 27, 2018 Assessment & Plan (1) Lyme disease: Patient with back pain, headache, neck stiffness and fever with positive screening IgM Lyme serology, falling white count and platelet count. Certainly tickborne disease, especially Anaplasma given decreasing platelets and white count, as well as early Lyme disease could produce above symptoms. Agree that need to rule out possibility of meningitis as well as lumbar spine infection, and patient to have lumbar puncture and MRI of the lumbar spine as discussed. Patient to continue on doxycycline for now pending further work-up. Case discussed with Dr. Farrell. Will follow. History of Present Illness Reason for Consultation: Neck pain/back pain, positive Lyme serology Attending Physician: Georgia Farrell MD History of Present Illness 33-year-old female with history of GERD but otherwise in good health was well until several weeks ago when she began to complain of back pain radiating into her right leg. She was seen by her primary care physician and prescribed Flexeril without improvement. Over the past several days, patient developed progressively worsening back pain along with headache and stiff neck along with fever and chills. She came to the emergency department where she was found to be hypotensive and was given fluids with improvement. Initial work-up was positive only for positive screening IgM Lyme serology. She was initially started on ceftriaxone, doxycycline added today. Patient with no known obvious tick bite but does live in the [facility]. Today, white count and platelet count have fallen, and patient has mild elevation of one liver enzyme. Denies any rash, now also complaining of bilateral jaw pain. Allergies Allergy/AdvReac Type Severity Reaction Status Date / Time bee venom protein (honey bee) Allergy Severe ANAPHYLAXIS Verified 10/27/18 02:05 Home Medications Home Medications Medication Instructions Recorded Confirmed Type omeprazole 20 mg PO DAILY 10/27/18 10/27/18 History Patient History Medical History Choledocholithiasis H. 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 Beliefs That Will Affect Care: None Current Living Situation: Family Feels Safe at Home: Yes Safety Concerns: Feels Safe At This Time Smoking Status: Current every day smoker Tobacco Type: cigarettes Cigarettes Per Day: 10 Hx Alcohol Use: Yes Alcohol type: beer Hx Substance Use: No Review of Systems Review of Systems: All systems reviewed & are unremarkable except as noted in HPI & below Physical Exam Constitutional: WD/WN, vitals as above comfortable; no acute distress Eyes: PERRL, conjunctivae normal, anicteric sclerae ENMT: external ear and nose normal, oropharynx normal Neck: trachea midline, no thyromegaly neck nontender Respiratory: normal respiratory effort, lungs clear to auscultation normal percussion; does not use accessory muscles Cardiovascular: Rate/Rhythm: regular rate and regular rhythm Heart Sounds: normal S1 and normal S2; no gallop, no murmur and no cardiac rub Vessels: normal peripheral pulses; no JVD Gastrointestinal (Abdomen): normal bowel sounds, soft, nontender, no hepatosplenomegaly Musculoskeletal: no cyanosis or clubbing, extremities motor strength 5/5 Spine: thoracic spine normal to inspection and lumbar spine normal to inspection; no cervical spinal tenderness Skin: no rashes, warm and dry normal turgor; no lesions Neurologic: patellar DTR's 2+ bilat, sensation intact no focal motor deficits Psychiatric: A+Ox3, euthymic affect Orientation: cooperative Lymphatic: no cervical or axillary lymphadenopathy no inguinal lympha denopathy Results & Data Vital Signs (Past 12 Hours) Vital Signs Temp Pulse Pulse Resp BP Pulse Ox 10/27/18 15:34 36.6 C 73 19 84/55 L 100 10/27/18 13:39 66 10/27/18 12:00 37.0 C 78 19 85/52 L 98 10/27/18 10:17 37.6 C H 67 90/55 L 10/27/18 07:27 36.6 C 70 16 84/51 L 97 Laboratory Results Short CBC 10/27/18 10/27/18 Range/Units 00:41 06:55 WBC 7.99 4.75 L (4.8-10.8) K/uL Hgb 14.2 11.1 L D (12.0-16.0) g/dL Hct 40.6 33.1 L (37-47) % Plt Count 161 105 L (130-400) K/uL BMP 10/27/18 10/27/18 00:41 06:55 Sodium 131 L 141 D Potassium 3.8 4.0 Chloride 100 111 H Carbon Dioxide 22 22 BUN 10 8 Creatinine 0.79 0.54 L Glucose 122 H 112 H Calcium 8.8 7.5 L Cardiac Enzymes 10/27/18 Range/Units 00:41 Total Creatine Kinase 32 (26-192) U/L Troponin I < 0.015 (0-0.045) ng/ml Liver Function 10/27/18 Range/Units 00:41 Total Bilirubin 0.4 (0.2-1) mg/dl Direct Bilirubin 0.1 (0-0.2) mg/dl AST 67 H (15-37) U/L ALT 48 (12-78) U/L Alkaline Phosphatase 80 (45-117) U/L Albumin 3.4 (3.4-5.0) gm/dl Urine 10/27/18 Range/Units Unknown Urine Color Yellow Urine Appearance Clear (Clear) Urine pH 6.5 (4.5-7.5) Ur Specific [place] 1.031 H (1.000-1.030) Urine Protein 1+ H (Negative) Urine Glucose (UA) Negative (Negative) Diagnostic Findings CT OF THE NECK WITH IV CONTRAST CLINICAL HISTORY: neck stiffness, fevers, hypotension COMPARISON STUDY: No previous studies for comparison. TECHNIQUE: Following IV administration of 94 mL of Optiray-320, helical axial images of the neck were obtained. Sagittal and coronal reconstructions were viewed. Automated exposure control was utilized for the study. A dose lowering technique was utilized adhering to the principles of ALARA. FINDINGS: There is no abscess or lymphadenopathy within the neck. Major vasculature is patent. Visualized portions of the intracranial contents are unremarkable. The parotid and submandibular glands are normal. Three nodules along the left aspect of the trachea at the level the thoracic inlet measure up to 8 mm. These favor mucus however tracheal lesions cannot be excluded. There is no cervical spine fracture. IMPRESSION: 1. Three nodules along the left aspect of the trachea at the level of thoracic inlet. Mucus is favored although tracheal lesions could appear similar. 2. No acute process within the neck by CT. No abscess or lymphadenopathy. Electronically signed by: David Mensah M.D. 10/27/2018 8:14 AM Dictated: 10/27/1808 Transcribed: 10/27/1808
--- NOTE | 2018-10-27 16:55 | Hospitalist Progress Note ---
Date of Service October 27, 2018 Assessment & Plan (1) Hypotension: With hypotension, possible secondary to infection concern for Lyme disease versus anaplasmosis no Evidence of sepsis, patient is febrile, white count Continue IV fluid resuscitation Monitoring telemetry (2) Lyme disease: lyme Ig IM Patient denies of any tick bites, no rash noted She is started with doxycycline Appreciate input from ID Order for peripheral blood smear to assess inclusion for anaplasmosis Given presentation with neck pain: Scheduled for lumbar puncture tomorrow to check Antibody and CSF (3) Lumbar back pain: CT abdomen pelvis shows no acute abdominal pathology Ordered for MRI of lumbar spine with and without contrast (4) Neck pain: Does not have typical meningitis symptoms, No neck rigidity No confusion, patient is afebrile normal white count Patient most likely secondary to muscle spasm Ordered for Flexeril Empiric antibiotic with Rocephin and doxycycline Scheduled for lumbar puncture PANCYTOPENIA Noted to be neutropenia/ Thrombocytopenia Concern for possible Lyme disease/anaplasmosis Doxycycline Repeat CBC in a.m. Peripheral blood smear ordered CODE STATUS: Full DVT prophylaxis: SCD and teds, low risk patient is encouraged to ambulate Disposition: Discharge home when medically stable Subjective Complaints of headache, neck pain Afebrile Having low back pain on the right side radiating to hip and upper thigh area, Afebrile No nausea vomiting or abdominal pain Physical Exam Constitutional: WD/WN, vitals as above no acute distress Eyes: PERRL, conjunctivae normal, anicteric sclerae ENMT: external ear and nose normal, oropharynx normal Neck: Complaints of neck pain on movement [id number], no neck pain or discomfort in forward flexion patient No neck rigidity noted Respiratory: normal respiratory effort, lungs clear to auscultation Cardiovascular: RRR, no murmur, no edema Gastrointestinal (Abdomen): normal bowel sounds, soft, nontender, no hepatosplenomegaly Musculoskeletal: no cyanosis or clubbing, extremities motor strength 5/5 Skin: no rashes, warm and dry Neurologic: PERRL, EOMI, accommodation nl, no face palsy, no dysarthria Psychiatric: A+Ox3, euthymic affect Results & Data Vital Signs (Past 12 Hours) Vital Signs Temp Pulse Pulse Resp BP Pulse Ox 10/27/18 15:34 36.6 C 73 19 84/55 L 100 10/27/18 13:39 66 10/27/18 12:00 37.0 C 78 19 85/52 L 98 10/27/18 10:17 37.6 C H 67 90/55 L 10/27/18 07:27 36.6 C 70 16 84/51 L 97 (1) Hypotension Hypotension type: unspecified hypotension type Qualified Code(s): I95.9 - Hypotension, unspecified
[2018-10-27] MEDS ORDERED: SODIUM CHLORIDE 0.9% 500 ML IV STA (23:30)
[2018-10-28 06:02] LABS: Basophils # (auto) 0.02 K/uL (0-0.2); Basophils % (auto) 0.5 %; Eosinophils % (auto) 2.3 %; Hematocrit (blood only) 32.2 % (37-47); Hemoglobin 10.6 g/dL (12.0-16.0); Lymphocytes # (auto) 2.18 K/uL (1.2-3.4); Lymphocytes % (auto) 49.1 %; Mean Corpuscular Hgb Conc 32.9 g/dL (32-36); Mean Corpuscular Volume 89.9 fL (80-100); Mean Platelet Volume 9.8 fL (7.4-10.4); Monocytes # (auto) 0.31 K/uL (0.11-0.59); Neutrophils # (auto) 1.83 K/uL (1.4-6.5); Neutrophils % (auto) 41.1 %; Platelet Count 120 K/uL (130-400); RDW Coefficient of Variation 13.2 % (11.5-14.5); RDW Standard Deviation 43.5 fL (36.4-46.3); Red Blood Count 3.58 M/uL (4.2-5.4); White Blood Count 4.44 K/uL (4.8-10.8)
[2018-10-28 06:39] LABS: BUN Creatinine Ratio 18.8 (10-20); Calcium 7.5 mg/dl (8.5-10.1); Creatinine Clr Calc Pharmacy 139.7 ml/min; Est GFR (African American) 147.3; Est GFR (Non-African American) 127.1; Magnesium 2.2 mg/dl (1.8-2.4); Potassium 3.4 mmol/L (3.5-5.1)
[2018-10-28 07:04] LABS: Giant Platelets 1+; Platelet Estimate Decreased (Normal)
[2018-10-28] MEDS: SODIUM CHLORIDE 0.9% 1000ML 1,000 ML IV SCH ×2 (08:18→13:37)
--- NOTE | 2018-10-28 09:34 | Fluoroscopy Report ---
FL lumbar puncture diagnostic CLINICAL HISTORY: lyme disease /lyme meningitis COMPARISON STUDY: None FLUOROSCOPY TIME: 6 seconds. NUMBER OF FLUOROSCOPIC IMAGES: 1 FINDINGS: A timeout was performed. The risks of the procedure were explained to the patient and informed consent was obtained. The patient is prepped and draped in sterile fashion. Under fluoroscopic guidance, lumbar puncture was performed at the L4-5 level with a 20-gauge spinal n eedle. 9 cc of clear CSF was removed under gravity drip and 4 tubes. The fluid was sent for labora tory analysis as specified by the referring clinician. There were no immediate complications. IMPRESSION: Successful fluoroscopically guided diagnostic lumbar puncture performed at the L4-5 stephanie sosa Electronically signed by: Andrey Underwood M.D. 10/28/2018 9:33 AM
[2018-10-28 09:55] LABS: CSF Glucose 61 mg/dl (40-70)
[2018-10-28 10:01] LABS: Appearance CSF Clear; CSF Count Tube # 3; CSF Xanthrochromic No xanthochromia; Color CSF Colorless
[2018-10-28 10:02] LABS: Red Blood Cell CSF (A) 0 /uL (0-); Red Blood Cell CSF (B) 0 /uL (0-); White Blood Cell CSF (A) 2 /uL (0-5); White Blood Cell CSF (B) 2 /uL (0-5)
[2018-10-28 10:09] LABS: CSF Chemistry Tube # 1
[2018-10-28] MEDS: PANTOprazole 40 MG TAB PO SCH (10:13)
[2018-10-28] MEDS: DOXYCYCLINE HYCLATE 100 MG in DEXTROSE 5% 100 ML IV SCH (10:15)
[2018-10-28] MEDS: cefTRIAXone SODIUM 2,000 MG in DEXTROSE 5% 50 ML IV SCH (10:19)
--- NOTE | 2018-10-28 13:14 | Hospitalist Progress Note ---
Date of Service October 28, 2018 Assessment & Plan (1) Hypotension: Blood pressure improved to baseline Presented with hypotension, possible secondary to infection concern for Lyme disease versus anaplasmosis no Evidence of sepsis, patient is febrile, white count IV fluid DC DC telemetry Patient is encouraged to increase fluid intake (2) Lyme disease: lyme Ig IM positive Patient denies of any tick bites, no rash noted She is started with doxycycline-clinically much improved Appreciate input from ID peripheral blood smear shows no evidence of anaplasmosis inclusion Given presentation with neck pain: Status lumbar puncture today: CSF analysis within normal limits, no evidence of meningitis (3) Pancytopenia: Possible secondary to tickborne disease/Lyme versus anaplasmosis Peripheral blood smear: Shows mild pancytopenia with CBC WBC 4.4, H/H 10.6/32.3 and platelet 120 Morphologic features of the smear are nonspecific No anaplasmosis identified on smear (4) Lumbar back pain: CT abdomen pelvis shows no acute abdominal pathology MRI of lumbar spine with and without contrast: No acute pathology, 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-which explains patient's right-sided low back pain with radiation to right hip and groin Patient reports improvement of the symptoms, no problem in ambulation, not requiring frequent pain medication Recommend outpatient physical therapy If symptoms continues to persist patient can follow-up with orthopedics for possible steroid injection for sciatic (5) Neck pain: Secondary to muscle spasm, Reproducible neck pain/ordered for heating pad, Flexeril Lumbar puncture done this mornin:20 AM CSF fluid DNR/PCR pending CSF appears clear WBC 2/RBC 0 CSF cell count #3 CSF glucose 61/CSF total protein 33.6 -Essentially normal CSF study No evidence of meningitis Rocephin discontinued, continue doxycycline total 10 days for tickborne/Lyme disease PANCYTOPENIA Noted to be neutropenia/ Thrombocytopenia Concern for possible Lyme disease/anaplasmosis Doxycycline Repeat CBC in a.m. Peripheral blood smear as above CODE STATUS: Full DVT prophylaxis: SCD and teds, low risk patient is encouraged to ambulate Disposition: Plan to discharge home possible tomorrow if remains hemodynamically stable Subjective Return from MRI scan today, Feels much better than yesterday afebrile, energy improved, no radiation pain on the lower back Appetite has improved Lumbar puncture/CSF analysis shows no evidence of meningitis Blood pressure remains stable Physical Exam Constitutional: WD/WN, vitals as above no acute distress Eyes: PERRL, conjunctivae normal, anicteric sclerae ENMT: external ear and nose normal, oropharynx normal Respiratory: normal respiratory effort, lungs clear to auscultation Cardiovascular: RRR, no murmur, no edema Gastrointestinal (Abdomen): normal bowel sounds, soft, nontender, no hepatosplenomegaly Musculoskeletal: no cyanosis or clubbing, extremities motor strength 5/5 Skin: no rashes, warm and dry Neurologic: PERRL, EOMI, accommodation nl, no face palsy, no dysarthria Psychiatric: A+Ox3, euthymic affect Results & Data Vital Signs (Past 12 Hours) Vital Signs Temp Pulse Pulse Resp BP BP Pulse Ox 10/28/18 11:13 36.9 C 71 18 99/66 L 78/46 L 98 10/28/18 09:30 36.7 C 68 16 94/64 L 99 10/28/18 08:00 64 10/28/18 07:00 36.8 C 70 16 85/51 L 98 10/28/18 04:00 36.4 C L 69 16 99/65 L 99 (1) Hypotension Hypotension type: unspecified hypotension type Qualified Code(s): I95.9 - Hypotension, unspecified
--- NOTE | 2018-10-28 14:37 | Infectious Disease Progress Nt ---
Date of Service October 28, 2018 Assessment & Plan (1) Lyme disease: Patient with back pain, headache, neck stiffness and fever with positive screening IgM Lyme serology, falling white count and platelet count. Certainly tickborne disease, including Anaplasma given decreasing platelets and white count, as well as early Lyme disease could produce above symptoms. Meningitis unlikely given CSF findings. Continue doxycycline for now. Will follow. Subjective Complaints of headache, neck pain Afebrile Having low back pain on the right side radiating to hip and upper thigh area, Afebrile No nausea vomiting or abdominal pain Review of Systems Review of Systems: All systems reviewed & are unremarkable except as noted in HPI & below Physical Exam Constitutional: WD/WN, vitals as above comfortable; no acute distress Eyes: PERRL, conjunctivae normal, anicteric sclerae ENMT: external ear and nose normal, oropharynx normal Neck: trachea midline, no thyromegaly neck nontender Respiratory: normal respiratory effort, lungs clear to auscultation normal percussion; does not use accessory muscles Cardiovascular: Rate/Rhythm: regular rate and regular rhythm Heart Sounds: normal S1 and normal S2; no gallop, no murmur and no cardiac rub Vessels: normal peripheral pulses; no JVD Gastrointestinal (Abdomen): normal bowel sounds, soft, nontender, no hepatosplenomegaly Musculoskeletal: no cyanosis or clubbing, extremities motor strength 5/5 Spine: thoracic spine normal to inspection and lumbar spine normal to inspection; no cervical spinal tenderness Skin: no rashes, warm and dry normal turgor; no lesions Neurologic: patellar DTR's 2+ bilat, sensation intact no focal motor deficits Psychiatric: A+Ox3, euthymic affect Orientation: cooperative Lymphatic: no cervical or axillary lymphadenopathy no inguinal lymphadenopathy Results & Data Vital Signs (Past 12 Hours) Vital Signs Temp Pulse Pulse Resp BP BP Pulse Ox 10/28/18 11:13 36.9 C 71 18 99/66 L 78/46 L 98 10/28/18 09:30 36.7 C 68 16 94/64 L 99 10/28/18 08:00 64 10/28/18 07:00 36.8 C 70 16 85/51 L 98 10/28/18 04:00 36.4 C L 69 16 99/65 L 99 Laboratory Results Short CBC 10/28/18 Range/Units 05:38 WBC 4.44 L (4.8-10.8) K/uL Hgb 10.6 L (12.0-16.0) g/dL Hct 32.2 L (37-47) % Plt Count 120 L (130-400) K/uL Peripher Smr Path Cons BMP 10/28/18 05:38 Sodium 144 Potassium 3.4 L Chloride 114 H Carbon Dioxide 24 BUN 9 Creatinine 0.49 L Glucose 97 Calcium 7.5 L Diagnostic Findings Microbiology 10/28/18 09:20 Cerebral Spinal Fluid Acid Fast Bacilli Smear - Final 10/28/18 09:20 Cerebral Spinal Fluid Gram Stain - Final 10/27/18 Unknown Urine,Clean Catch Urine Culture - Preliminary No growth - Less than 1,000 colonies/mL, Final report to follow. 10/27/18 00:41 Blood Aerobic Blood Culture - Preliminary No growth in Aerobic bottle after 24 hours. 10/27/18 00:41 Blood Anaerobic Blood Culture - Final 10/27/18 00:41 Blood Aerobic Blood Culture - Preliminary No growth in Aerobic bottle after 24 hours. 10/27/18 00:41 Blood Anaerobic Blood Culture - Preliminary No growth in Anaerobic bottle after 24 hours.
[2018-10-28] MEDS ORDERED: GADOBUTROL 65ML VIAL IV PRN (15:57)
--- NOTE | 2018-10-28 16:17 | Magnetic Resonance Report ---
MR lumbar spine wo/w con HISTORY: Pain. Neuropathy. back pain TECHNIQUE: Multiplanar multisequence MRI of the lumbar spine was performed both before and after the intravenous administration of contrast. COMPARISON: None. FINDINGS: For the purpose of the report the L5-S1 disc space will be located on axial image 27 of 30. Signal characteristics of the vertebral bodies are normal. Mild degenerative disc change L5-S1. L1-L2: No significant central canal or neural foraminal narrowing. L2-L3: No significant central canal or neural foraminal narrowing. L3-L4: No significant central canal or neural foraminal narrowing. L4-L5: No significant central canal or neural foraminal narrowing. L5-S1: Moderate broad-based central disc herniation. Minimal impact anterior thecal sac as well as S1 nerve roots bilaterally. No significant compromise of the neural foramina. IMPRESSION: 1. Mild central disc herniation L5-S1. 2. This shows contact with but no significant deformity or displacement of the thecal sac or associat ed neural elements. The above report was generated using voice recognition software. It may contain grammatical, syntax or spelling errors. Electronically signed by: Sriram Glaser M.D. 10/28/2018 4:16 PM
[2018-10-28] MEDS: ACETAMINOPHEN 325 MG TAB PO PRN (17:29)
[2018-10-28] MEDS ORDERED: POTASSIUM CHLORIDE 10 MEQ TABCR PO STA (17:32)
[2018-10-28] MEDS ORDERED: CYCLOBENZAPRINE HCL 10 MG TAB PO PRN (17:46)
[2018-10-28] MEDS ORDERED: CYCLOBENZAPRINE HCL 10 MG TAB PO STA (17:46)
[2018-10-28] MEDS: DOXYCYCLINE HYCLATE 100 MG CAP PO SCH (21:24)
[2018-10-29 06:23] LABS: Hemoglobin 11.2 g/dL (12.0-16.0); Mean Corpuscular Hgb Conc 32.9 g/dL (32-36); Mean Corpuscular Volume 89.2 fL (80-100); Mean Platelet Volume 10.2 fL (7.4-10.4); Platelet Count 157 K/uL (130-400); RDW Coefficient of Variation 13.4 % (11.5-14.5); RDW Standard Deviation 43.8 fL (36.4-46.3); Red Blood Count 3.81 M/uL (4.2-5.4); White Blood Count 5.12 K/uL (4.8-10.8)
[2018-10-29 07:01] LABS: Basophils # (auto) 0.03 K/uL (0-0.2); Basophils % (auto) 0.6 %; Echinocytes 1+; Eosinophils # (auto) 0.19 K/uL (0-0.5); Eosinophils % (auto) 3.7 %; Giant Platelets 1+; Lymphocytes % (auto) 66.4 %; Monocytes # (auto) 0.32 K/uL (0.11-0.59); Monocytes % (auto) 6.3 %; Neutrophils # (auto) 1.18 K/uL (1.4-6.5)
[2018-10-29 07:02] LABS: BUN Creatinine Ratio 16.7 (10-20); Blood Urea Nitrogen 8 mg/dl (7-18); Calcium 7.8 mg/dl (8.5-10.1); Carbon Dioxide 24 mmol/L (21-32); Chloride 116 mmol/L (98-107); Creatinine Clr Calc Pharmacy 148.8 ml/min; Est GFR (African American) > 150.0; Est GFR (Non-African American) 129.8; Glucose 101 mg/dl (70-99); Potassium 4.1 mmol/L (3.5-5.1); Sodium 144 mmol/L (136-145)
[2018-10-29] MEDS: DOXYCYCLINE HYCLATE 100 MG CAP PO SCH (08:25)
[2018-10-29] MEDS: PANTOprazole 40 MG TAB PO SCH (08:26)
--- NOTE | 2018-10-29 10:25 | Infectious Disease Progress Nt ---
Date of Service October 29, 2018 Assessment & Plan (1) Lyme disease: Patient with acute febrile illness consistent with early Lyme disease although Anaplasma infection certainly possibility. Given the clinical improvement, think patient could be discharged safely on doxycycline 100 mg twice daily for an additional 10 days. Case discussed with Dr. Farrell. Subjective Patient seen in follow-up for possible Lyme disease/Anaplasma. Patient feeling much better. CSF remains negative. MRI also unremarkable. No fever. No other new complaints. Review of Systems Review of Systems: All systems reviewed & are unremarkable except as noted in HPI & below Physical Exam Constitutional: WD/WN, vitals as above comfortable; no acute distress Eyes: PERRL, conjunctivae normal, anicteric sclerae ENMT: external ear and nose normal, oropharynx normal Neck: trachea midline, no thyromegaly neck nontender Respiratory: normal respiratory effort, lungs clear to auscultation normal percussion; no respiratory distress Cardiovascular: Rate/Rhythm: regular rate and regular rhythm Heart Sounds: normal S1 and normal S2; no gallop, no murmur and no cardiac rub Gastrointestinal (Abdomen): normal bowel sounds, soft, nontender, no hepatosplenomegaly Musculoskeletal: no cyanosis or clubbing, extremities motor strength 5/5 No spinal tenderness, no joint swelling or erythema Skin: no rashes, warm and dry no lesions Neurologic: moves all extremities and awake; no focal motor deficits Motor/Sensory: no sensory deficit Psychiatric: A+Ox3, euthymic affect Lymphatic: no cervical or axillary lymphadenopathy no inguinal lymphadenopathy Results & Data Vital Signs (Past 12 Hours) Vital Signs Temp Pulse Resp BP BP Pulse Ox 10/29/18 04:01 36.7 C 73 16 87/50 L 100 10/28/18 23:58 36.7 C 70 16 93/59 L 98 Laboratory Results Short CBC 10/29/18 Range/Units 05:47 WBC 5.12 (4.8-10.8) K/uL Hgb 11.2 L (12.0-16.0) g/dL Hct 34.0 L (37-47) % Plt Count 157 (130-400) K/uL BMP 10/29/18 05:47 Sodium 144 Potassium 4.1 D Chloride 116 H Carbon Dioxide 24 BUN 8 Creatinine 0.46 L Glucose 101 H Calcium 7.8 L Diagnostic Findings Microbiology 06/16/19 Unknown Urine,Clean Catch Urine Culture - Final No growth - less than 1,000 colonies/mL. 10/27/18 00:41 Blood Aerobic Blood Culture - Preliminary No growth in Aerobic bottle after 48 hours. 10/27/18 00:41 Blood Anaerobic Blood Culture - Final 10/27/18 00:41 Blood Aerobic Blood Culture - Preliminary No growth in Aerobic bottle after 48 hours. 10/27/18 00:41 Blood Anaerobic Blood Culture - Preliminary No growth in Anaerobic bottle after 48 hours. 10/28/18 09:20 Cerebral Spinal Fluid Acid Fast Bacilli Smear - Final 10/28/18 09:20 Cerebral Spinal Fluid Gram Stain - Final MR lumbar spine wo/w con HISTORY: Pain. Neuropathy. back pain TECHNIQUE: Multiplanar multisequence MRI of the lumbar spine was performed both before and after the intravenous administration of contrast. COMPARISON: None. FINDINGS: For the purpose of the report the L5-S1 disc space will be located on axial image 27 of 30. Signal characteristics of the vertebral bodies are normal. Mild degenerative disc change L5-S1. L1-L2: No significant central canal or neural foraminal narrowing. L2-L3: No significant central canal or neural foraminal narrowing. L3-L4: No significant central canal or neural foraminal narrowing. L4-L5: No significant central canal or neural foraminal narrowing. L5-S1: Moderate broad-based central disc herniation. Minimal impact anterior thecal sac as well as S1 nerve roots bilaterally. No significant compromise of the neural foramina. IMPRESSION: 1. Mild central disc herniation L5-S1. 2. This shows contact with but no significant deformity or displacement of the thecal sac or associated neural elements. The above report was generated using voice recognition software. It may contain grammatical, syntax or spelling errors. Electronically signed by: Sriram Glaser M.D. 10/28/2018 4:16 PM Dictated: 10/28/18 [id number]
--- NOTE | 2018-10-29 10:38 | Hospitalist Progress Note ---
Date of Service October 29, 2018 Assessment & Plan (1) Hypotension: Blood pressure improved to baseline Presented with hypotension, possible secondary to infection concern for Lyme disease versus anaplasmosis no Evidence of sepsis, patient is febrile, white count Pressure remains stable off IV fluids (2) Lyme disease: lyme Ig IM positive Patient denies of any tick bites, no rash noted She is started with doxycycline-clinically much improved Appreciate input from ID peripheral blood smear shows no evidence of anaplasmosis inclusion Given presentation with neck pain: Status lumbar puncture CSF analysis within normal limits, no evidence of meningitis Appreciate input from infectious disease: Stable to be discharged home patient will need doxycycline 100 mg twice daily for additional 10 more days Prescription sent to her pharmacy (3) Pancytopenia: Possible secondary to tickborne disease/Lyme versus anaplasmosis Peripheral blood smear: Shows mild pancytopenia with CBC WBC 4.4, H/H 10.6/32.3 and platelet 120 Morphologic features of the smear are nonspecific No anaplasmosis identified on smear (4) Lumbar back pain: CT abdomen pelvis shows no acute abdominal pathology MRI of lumbar spine with and without contrast: No acute pathology, 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-which explains patient's right-sided low back pain with radiation to right hip and groin Patient reports improvement of the symptoms, no problem in ambulation, not requiring frequent pain medication Recommend outpatient physical therapy If symptoms continues to persist patient can follow-up with orthopedics for possible steroid injection for sciatic (5) Neck pain: Pain markedly improved after trial of Flexeril Secondary to muscle spasm, Patient is discharged home today with prescription for as needed Flexeril Lumbar puncture done this mornin:20 AM CSF fluid DNR/PCR pending CSF appears clear WBC 2/RBC 0 CSF cell count #3 CSF glucose 61/CSF total protein 33.6 -Essentially normal CSF study No evidence of meningitis Rocephin discontinued, continue doxycycline total 10 days for tickborne/Lyme disease PANCYTOPENIA Noted to be neutropenia/ Thrombocytopenia possible due to Lyme disease/anaplasmosis Continue p.o. doxycycline Peripheral blood smear as above CODE STATUS: Full DVT prophylaxis: SCD and teds, low risk patient is encouraged to ambulate Disposition: Stable to be discharged home today Subjective Patient feels fine, no fever chills no headache Neck pain has completely resolved BP stable Evaluated by infectious disease today patient is stable to be discharged home Physical Exam Constitutional: WD/WN, vitals as above no acute distress Eyes: PERRL, conjunctivae normal, anicteric sclerae ENMT: external ear and nose normal, oropharynx normal Respiratory: normal respiratory effort, lungs clear to auscultation Cardiovascular: RRR, no murmur, no edema Gastrointestinal (Abdomen): normal bowel sounds, soft, nontender, no hepatosplenomegaly Musculoskeletal: no cyanosis or clubbing, extremities motor strength 5/5 Skin: no rashes, warm and dry Neurologic: PERRL, EOMI, accommodation nl, no face palsy, no dysarthria Psychiatric: A+Ox3, euthymic affect Results & Data Vital Signs (Past 12 Hours) Vital Signs Temp Pulse Resp BP BP Pulse Ox 10/29/18 04:01 36.7 C 73 16 87/50 L 100 10/28/18 23:58 36.7 C 70 16 93/59 L 98 (1) Hypotension Hypotension type: unspecified hypotension type Qualified Code(s): I95.9 - Hypotension, unspecified
--- NOTE | 2018-10-29 10:40 | Discharge Summary ---
Date of Service October 29, 2018 Admission HPI Per Admitting Provider DICTATED BY: Fabrice Chowdhury MD DATE OF ADMISSION: 10/27/2018 CHIEF COMPLAINT: Back pain, neck pain, hypotension. HISTORY OF PRESENT ILLNESS: This is a 33-year-old female with past medical history significant for GERD, presents with ongoing back pain since last 2-3 days in the mid back radiating into her right lower extremity. As per the [facility] records, she was seen for back pain on 10/05 and prescribed Flexeril at that time, but patient says yesterday she did have some neck pain too. She felt like she was having fevers and she came to the ER and in the ER, she was hypotensive. With the fluid bolus, blood pressure improved. She was afebrile, no leukocytosis. Lactic acid was normal. Because of hypotension and ongoing symptoms, CT of abdomen and pelvis and CT soft tissue neck were ordered, which are still pending. Her Lyme screen is positive, but the patient denies any tick bites. She lives in the [facility], but she did not note any tick bites and there are no rashes. Denies any headache, no blurred vision, no earache, no runny nose, no sore throat, no difficulty swallowing. Appetite is good. No chest pain or shortness of breath. No cough, no nausea, no abdominal pain. Normal bowel and bladder movements. No blood in the stools, no black stools, no hematuria, no burning micturition. No swelling in the legs. Principal Diagnosis Lyme disease Discharge Exam Constitutional WD/WN, vitals as above no acute distress Eyes PERRL, conjunctivae normal, anicteric sclerae ENMT external ear and nose normal, oropharynx normal Respiratory normal respiratory effort, lungs clear to auscultation Cardiovascular RRR, no murmur, no edema Gastrointestinal (Abdomen) normal bowel sounds, soft, nontender, no hepatosplenomegaly Musculoskeletal no cyanosis or clubbing, extremities motor strength 5/5 Skin no rashes, warm and dry Neurologic PERRL, EOMI, accommodation nl, no face palsy, no dysarthria Psychiatric A+Ox3, euthymic affect Discharge Data Allergies Allergy/AdvReac Type Severity Reaction Status Date / Time bee venom protein (honey bee) Allergy Severe ANAPHYLAXIS Verified 10/27/18 02:05 Consultations 10/27/18 02:04 ED Decision to Admit Stat 10/27/18 08:00 Consult Infectious Diseases Routine Ordered Studies 10/27/18 02:04 CT abd pelvis IV con only Urgent 10/27/18 02:05 CT soft tissue neck w con Urgent 10/28/18 02:10 MR lumbar spine wo/w con Routine 10/28/18 09:00 FL lumbar puncture diagnostic Routine Hospital Course (1) Hypotension: Blood pressure improved to baseline Presented with hypotension, possible secondary to infection concern for Lyme disease versus anaplasmosis no Evidence of sepsis, patient is febrile, white count Pressure remains stable off IV fluids (2) Lyme disease: lyme Ig IM positive Patient denies of any tick bites, no rash noted She is started with doxycycline-clinically much improved Appreciate input from ID peripheral blood smear shows no evidence of anaplasmosis inclusion Given presentation with neck pain: Status lumbar puncture CSF analysis within normal limits, no evidence of meningitis Appreciate input from infectious disease: Stable to be discharged home patient will need doxycycline 100 mg twice daily for additional 10 more days Prescription sent to her pharmacy (3) Pancytopenia: Possible secondary to tickborne disease/Lyme versus anaplasmosis Peripheral blood smear: Shows mild pancytopenia with CBC WBC 4.4, H/H 10.6/32.3 and platelet 120 Morphologic features of the smear are nonspecific No anaplasmosis identified on smear (4) Lumbar back pain: CT abdomen pelvis shows no acute abdominal pathology MRI of lumbar spine with and without contrast: No acute pathology, 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-which explains patient's right-sided low back pain with radiation to right hip and groin Patient reports improvement of the symptoms, no problem in ambulation, not requiring frequent pain medication Recommend outpatient physical therapy If symptoms continues to persist patient can follow-up with orthopedics for possible steroid injection for sciatic (5) Neck pain: Pain markedly improved after trial of Flexeril Secondary to muscle spasm, Patient is discharged home today with prescription for as needed Flexeril Lumbar puncture done this mornin:20 AM CSF fluid DNR/PCR pending CSF appears clear WBC 2/RBC 0 CSF cell count #3 CSF glucose 61/CSF total protein 33.6 -Essentially normal CSF study No evidence of meningitis Rocephin discontinued, continue doxycycline total 10 days for tickborne/Lyme disease PANCYTOPENIA Noted to be neutropenia/ Thrombocytopenia possible due to Lyme disease/anaplasmosis Continue p.o. doxycycline Peripheral blood smear as above CODE STATUS: Full DVT prophylaxis: SCD and teds, low risk patient is encouraged to ambulate Disposition: Stable to be discharged home today Total Time Total Time Spent Total Time Spent (In Minutes): Approximately 45 minutes Total Time Includes: Examination of the Patient, Discharge Planning, Medication Reconciliation and Communication With Other Providers Discharge Plan Discharge Items Patient Disposition: Home - Self-Care Reason For Visit: BACK PAIN, NECK PAIN Discharge Diagnosis: Lyme disease Discharge Goals: Decrease discomfort, Diagnostic testing and Therapeutic intervention Activity: Resume your previous activity Non-emergency contact: Primary Care Provider Call non-emergency contact if: you have any medication questions Diet: Regular Addtl Provider Instructions: recommend physical therapy as an outpatient for low back pain/sciatica please get referral from Family physician May benefit with orthopedics referral, is low back/hip pain is not improved with physical therapy Continue antibiotic doxycycline total 10 days Hospital follow-up with Dr. Rodriguez at [facility] on , 11/07/2018 at 2:45 PM Prescriptions: New doxycycline hyclate 100 mg Capsule 100 mg PO BID 10 Days Qty: 20 RF: 0 cyclobenzaprine 10 mg Tablet 10 mg PO TID PRN (Reason: pain) Qty: 60 RF: 0 Continued omeprazole 20 mg capsule,delayed release(DR/EC) 20 mg PO DAILY RF: 0 Stand-Alone Forms: [facility] Discharge Orders: Discharge Order (Routine); Ordered 10/29/18 Ordered By: Georgia Farrell Admission Data Admit Date/Time: 10/27/18 03:02 Attending Provider: Georgia Farrell Admit Provider: Fabrice Chowdhury Primary Care Provider: Casimiro Jones Other Providers: Fabrice Chowdhury ; Elgin Nieto Service: Telemetry Medical Other Interventions: Discharge Summary Assessment (RN) Last Done: 10/29/18 10:36 DC Date/Time DO NOT enter until pt leaves facility: 10/29/18 10:57
[2018-10-30 09:39] LABS: Amphetamine Urine, Confirm 5020 NG/ML (CUTOFF=250); Hydrocodone Urine NEGATIVE NG/ML (CUTOFF=50); Hydromor Urine 868 NG/ML (CUTOFF=50); Morphine Urine NEGATIVE NG/ML (CUTOFF=50); Norhydrocodone Conf Ur NEGATIVE NG/ML (CUTOFF=50); Noroxycodone Urine NEGATIVE NG/ML (CUTOFF=50); Oxycodone Urine NEGATIVE NG/ML (CUTOFF=50)
[2018-10-30 21:46] LABS: 18KDIGG Band NONREACTIVE (NONREACTIVE); 23KDIGG Band NONREACTIVE (NONREACTIVE); 23KDIGM Band REACTIVE (NONREACTIVE); 28KDIGG Band NONREACTIVE (NONREACTIVE); 30KDIGG Band NONREACTIVE (NONREACTIVE); 39KDIGG Band NONREACTIVE (NONREACTIVE); 39KDIGM Band NONREACTIVE (NONREACTIVE); 41KDIGG Band REACTIVE (NONREACTIVE); 41KDIGM Band NONREACTIVE (NONREACTIVE); 45KDIGG Band REACTIVE (NONREACTIVE); 58KDIGG Band NONREACTIVE (NONREACTIVE); 66KDIGG Band NONREACTIVE (NONREACTIVE); 93KDIGG Band NONREACTIVE (NONREACTIVE); Lyme Antibodies, WB IgG NEGATIVE (NEGATIVE); Lyme Antibodies, WB IgM NEGATIVE (NEGATIVE)
[2018-11-01 07:52] LABS: Lyme DNA Source CSF; Lyme IgG CSF NO BANDS DETECTED; Lyme IgM CSF NO BANDS DETECTED
== END 2018-10-29 10:57 | disposition home or self-care (01) | DRG 868 ==
LOC: ED 00:12 → 2N 03:02